=== PATIENT | male | born 1945 | race Caucasian/White ===

== ENCOUNTER → 2018-06-25 07:35 | Outpatient (CLI) | payer OTHER, SELFPAY ==
--- NOTE | 2018-06-25 | DI.MRI.S_ITS ---
PROCEDURE: MR LUMBAR SPINE WO CON INDICATIONS: Anesthesia of skin TECHNIQUE: Noncontrast sagittal T1 spin echo and T2 fast echo, sagittal STIR, axial T1 and T2 fast spin echo through the lumbar spine. In cases with scoliosis, additional coronal T2 fast spin echo may be performed. COMPARISON: None. FINDINGS: Image quality: Excellent. Alignment and Curvature: There is reversal of the normal lumbar lordosis at the L1-L2 level. Bone Marrow: Marrow is of normal overall signal. No acute vertebral body compression fractures. Mild anterior wedge deformity is seen along, with approximately 10% loss of height anteriorly. Spinal Cord: Conus medullaris terminates at the L1 level. Visualized cord demonstrates normal signal and size. Paraspinous Soft Tissues: No paravertebral masses. T12-L1: Normal appearance. L1-L2: Moderate to severe loss of disc height and disc signal are seen anteriorly. Reactive marrow endplate changes are seen, which are hyperintense on T1-weighted and T2-weighted imaging and most consistent with fatty metaplasia (Modic type II changes). Mild disc bulge is seen. No significant neural foraminal narrowing is seen. Mild central canal narrowing is seen. L2-L3: Moderate loss of disc height is seen. Loss of disc signal is seen. Moderate generalized disc bulge is seen. Moderate bilateral neural foraminal narrowing is seen, left worse than right. No significant central canal narrowing is seen. L3-L4: The disc height is well-preserved. Loss of disc signal is seen at this level. Moderate disc bulge is seen, which is eccentric to the left. There is a central disc protrusion, with an associated annular fissure, as on series 2 image 9 and on series 5 image 21. There is at least moderate bilateral neural foraminal narrowing seen, left worse than right. Moderate to severe central canal narrowing is seen. L4-L5: The disc height is well-preserved. Loss of disc signal is seen at this level. Moderate disc bulge is seen, which is eccentric to the right side. An annular fissure is seen posteriorly and on the left, as on series 2 image 13 and on series 5 image 26. There is moderate right-sided and moderate to severe left-sided neural foraminal narrowing seen. There is a degree of compression seen upon the exiting left L4 nerve root. Mild central canal narrowing is seen. L5-S1: The disc height and disc signal are relatively well-preserved. Minimal disc bulge is seen. Mild bilateral neural foraminal narrowing is seen, left worse than right. No significant central canal narrowing is seen. IMPRESSION: At the L3-L4 level, there is a central disc protrusion, with an associated annular fissure. Moderate to severe central canal narrowing is seen at this level. Remote L1 anterior wedge deformity. Moderate to severe left-sided neural foraminal narrowing is seen at L4-L5, with associated left L4 nerve root compression. An annular fissure is also seen at L4-L5. Dictated by: Emilio Han M.D. on 06/25/2018 at 9:19 Approved by: Emilio Han M.D. on 06/25/2018 at 9:24
== END ==
PROVIDERS: Visit Provider Internal Medicine
DX: M51.26 Other intervertebral disc displacement, lumbar region (principal); M48.061 Spinal stenosis, lumbar region without neurogenic claudication; R20.0 Anesthesia of skin
CPT/HCPCS: 72148

== ENCOUNTER → 2018-10-09 12:52 | Outpatient (CLI) | payer OTHER, SELFPAY ==
[2018-10-09 14:59] LABS: Vitamin B12 811 pg/mL (239-931)
[2018-10-12 03:58] LABS: Albumin 4.1 g/dL (3.8-4.8); Alpha 1 Globulin 0.3 g/dL (0.2-0.3); Alpha 2 Globulin 0.6 g/dL (0.5-0.9); Beta 1 Globulin 0.4 g/dL (0.4-0.6); Protein, Total 6.8 g/dL (6.1-8.1)
[2018-10-12 17:20] LABS: Vitamin B6 24.2 ng/mL (2.1-21.7)
== END ==
PROVIDERS: Visit Provider Psychiatry & Neurology Neurology
DX: R20.2 Paresthesia of skin (principal)
CPT/HCPCS: 36415; 82607; 84155; 84165; 84207

== ENCOUNTER 2019-02-03 15:23 | Emergency (ER) | payer OTHER, SELFPAY ==
[2019-02-03] VITALS (8 sets, daily range): BP systolic 114–144; BP diastolic 73–89; PULSE 58–164; RESP 16–20; TEMP 36.4; O2SAT 96–100; BMI 21.7
--- NOTE | 2019-02-03 15:53 | DI.RAD.S_ITS ---
PROCEDURE: XR CHEST 1V INDICATIONS: afib TECHNIQUE: One view of the chest was acquired. COMPARISON: None. FINDINGS: Surgical changes and devices: None. Lungs and pleura: Lungs are clear. There is hyperinflation of the lungs with flattening of the hemidiaphragms suggestive of COPD. No pleural effusions or pneumothorax. Mediastinum: Mediastinal contours appear normal. Heart size is normal. Bones and chest wall: No suspicious bony lesions. Overlying soft tissues appear unremarkable. IMPRESSION: 1. No acute cardiopulmonary disease. 2. Findings suggestive of COPD. Dictated by: Burak Garcia M.D. on 02/03/2019 at 15:14 Approved by: Burak Garcia M.D. on 02/03/2019 at 15:15
[2019-02-03] MEDS: SODIUM CHLORIDE 0.9% 1,000 ML 1000 ML IV (16:02)
[2019-02-03 16:11] LABS: Add Manual Diff / Slide Review NO; Basophils Absolute Auto 100 /uL (0-100); Basophils Percent Auto 0.9 % (0-2); Eosinophils Absolute Auto 100 /uL (0-450); Eosinophils Percent Auto 1.9 % (2-4); Hematocrit 52.4 % (41-53); Hemoglobin 17.9 g/dL (13.5-17.5); Lymphocytes Absolute Auto 2200 /uL (1100-4500); Mean Corpuscular HGB Conc 34.2 % (30-36); Mean Corpuscular Hemoglobin 33.6 PG (26-34); Mean Corpuscular Volume 98.2 fL (80-100); Monocytes Absolute Auto 700 /uL (0-900); Monocytes Percent Auto 9.4 % (3-14); Neutrophils Absolute Auto 4300 /uL (1500-7000); Neutrophils Percent Auto 57.8 % (50-75); Platelet Count 203 X10^3/uL (150-400); Red Blood Cell Count 5.34 X10^6/uL (4.5-5.9); Red Cell Distribution Width 13.2 % (11.6-14.8); White Blood Cell Count 7.4 X10^3/uL (4.5-11.0)
[2019-02-03 16:16] LABS: Alanine Aminotransferase 28 IU/L (<50); Albumin 4.6 g/dL (3.5-5.0); Albumin Globulin Ratio 1.4 (1.0-2.8); Alkaline Phosphatase 81 U/L (38-126); Aspartate Aminotransferase 55 IU/L (17-59); Blood Urea Nitrogen 22 mg/dL (9-20); Calcium 9.7 mg/dL (8.4-10.2); Carbon Dioxide 30 mmol/L (22-32); Chloride 99 mmol/L (98-107); Estimated Glomerular Filt Rate > 60.0 mL/min (>60); Globulin 3.2 g/dL (1.7-4.1); Glucose 141 mg/dL (80-110); HEMOLYSIS 34 (0-50); Sodium 140 mmol/L (137-145); Total Protein 7.8 g/dL (6.3-8.2)
[2019-02-03 16:17] LABS: Creatine Kinase 106 U/L (55-170); Magnesium 2.2 mg/dL (1.6-2.3)
[2019-02-03 16:29] LABS: Troponin I 0.025 ng/mL (0.01-0.034)
[2019-02-03 16:32] LABS: CKMB % Relative Index 2.5 % (1.5-5.0); Creatine Kinase MB 2.65 ng/mL (<2.37)
[2019-02-03 16:50] LABS: Thyroid Stimulating Hormone 3.85 uIU/mL (0.47-4.68)
[2019-02-03] MEDS: MIDAZOLAM 2 MG/2 ML VIAL 4 MG IV (18:03)
--- NOTE | 2019-02-03 18:12 | ED.ARRPALP ---
HPI - Arrhythmia/Palpitations General Chief Complaint: Arrhythmia/Palpitations Stated Complaint: in AFIB Time Seen by Provider: 02/03/19 16:17 Source: patient Mode of arrival: Ambulatory Limitations: no limitations History of Present Illness HPI narrative: Patient comes emergency department complaining of recurrence of his atrial fibrillation around 2200 last night. He states that he used to have atrial fibrillation chronically, but then went through ablation 7 years ago and has not had any AFib since. Patient denies any chest pain or shortness of breath. He states his only symptoms been palpitations. No lightheadedness or syncope. He states that he has not had any symptoms whatsoever prior to 2200 last night. Patient denies any history of DVT. He states that he would like to be cardioverted, because he was cardioverted a few times when he had previously had chronic AFib, and had very good results. Patient states he feels otherwise well now and denies other complaints at this time. Related Data Home Medications Medication Instructions Recorded Confirmed hydrochlorothiazide 25 mg PO QAM 02/03/19 02/04/19 lisinopril 10 mg PO BEDTIME 02/03/19 02/04/19 simvastatin 20 mg PO BEDTIME 02/03/19 02/04/19 multivitamin 1 tab PO DAILY 02/04/19 02/04/19 vit C,S-Yg-hnjrt-lutein-zeaxan 1 cap PO BID 02/04/19 02/04/19 [PreserVision AREDS-2] Allergies Allergy/AdvReac Type Severity Reaction Status Date / Time No Known Drug Allergies Allergy Verified 02/03/19 15:56 Review of Systems Constitutional Constitutional: Denies chills, Denies fatigue, Denies fever(s), Denies frequent falls, Denies lethargy and Denies weakness Eyes Eyes: Denies change in vision, Denies eye discharge, Denies irritation and Denies loss of vision ENT Ears, Nose, Mouth, and Throat: Denies change in voice, Denies dizziness, Denies neck pain, Denies sore throat and Denies throat swelling Cardiovascular Cardiovascular: Denies chest pain, Denies irregular heart rhythm, Denies lightheadedness, Reports palpitations, Denies dyspnea, Denies dyspnea on exertion and Denies orthopnea Respiratory Respiratory: Denies cough, Denies dyspnea, Denies dyspnea on exertion and Denies wheezing Gastrointestinal Gastrointestinal: Denies abdominal pain, Denies change in bowel habits, Denies diarrhea, Denies nausea and Denies vomiting Genitourinary Genitourinary: Denies hematuria, Denies flank pain, Denies urinary incontinence and Denies urinary urgency Musculoskeletal Musculoskeletal: Denies back pain, Denies muscle weakness, Denies neck pain, Denies numbness and Denies tingling Integumentary/Breasts Skin/Breast: Denies pruritus, Denies erythema, Denies rash and Denies wounds Neurologic Neurologic: Denies behavioral changes, Denies confusion, Denies dizziness, Denies frequent falls, Denies loss of vision, Denies numbness, Denies tingling and Denies weakness Psychiatric Psychiatric: Denies anxiety, Denies behavioral changes, Denies confusion, Denies depression, Denies homicidal ideation and Denies suicidal ideation Endocrine Endocrine: Denies fatigue, Denies flushing and Reports palpitations Hematologic/Lymphatic Hematologic/Lymphatic: Denies easy bruising Allergic/Immunologic Allergic/Immunologic: Denies urticaria, Denies throat swelling and Denies wheezing Patient History Medical History Atrial fibrillation (Acute) High cholesterol (Acute) Hypertension (Acute) Surgical History S/P ablation of atrial fibrillation (Acute) Social History Smoking Status: Former smoker Smoking Status: Former smoker alcohol intake frequency: a few times a week Substance Use Type: does not use Exam Initial Vital Signs Initial Vital Signs: Vital Signs Temperature 97.5 F L 02/03/19 15:27 Pulse Rate 164 H 02/03/19 15:27 Respiratory Rate 16 02/03/19 15:27 Blood Pressure 144/89 H 02/03/19 15:27 Pulse Oximetry 100 02/03/19 15:27 Const General: cooperative and well developed Nutritional Appearance: well nourished Orientation: alert, awake, oriented x3 and not confused [facility] Head: normocephalic and atraumatic Ears: external ears normal Nose: external nose normal and No nasal discharge Face and sinus: face symmetric and No dry mucous membranes Mouth: oral mucosae normal and moist mucous membranes Teeth and gingiva: dentition normal Eyes General: appearance normal, both eyes and all related structures Eyelids: eyelids normal Conjunctivae: conjunctivae normal Sclera: sclerae normal Pupils: PERRL EOM: EOM intact bilaterally Neck Neck: normal visual inspection, trachea midline, No lymphadenopathy, No midline deformity and No JVD Lymphatic: No lymphedema Chest Chest: normal inspection of the chest Resp Effort & Inspection: normal respiratory effort, able to speak in complete sentences, no respiratory distress and no use of accessory muscles Auscultation: clear to auscultation bilaterally, no rales, no rhonchi and no wheezes Cardio Rate: regular rate Rhythm: abnormal rhythm irregularly irregular Heart Sounds: no click, no gallops, no murmurs and no rubs Pulses: normal peripheral pulses GI Inspection: non-distended Palpation: soft, no hepatosplenomegaly, No guarding, No pulsatile mass and No tender Back/Spine/Pelvis Back: No CVA tenderness Cervical Spine: cervical ROM normal and No pain with cervical ROM Thoracic/Lumbar Spine: thoracic and lumbar spine normal to inspection Skin General: no rashes or lesions noted, No jaundice and No petechiae Neuro General: alert, oriented x3, gait normal and no focal motor deficits Speech: speech normal Extrem General: full ROM, no clubbing, cyanosis or edema, no pedal edema and no calf tenderness Psych Appearance: well kempt Mental Status: mental status grossly normal Attitude: cooperative Thought Content: normal and suicidality Judgment: judgment good Procedures Cardioversion Consent Signed: Yes Indication: Acute onset atrial fibrillation Cardiac rhythm prior to cardioversion: Atrial fibrillation with rate control Stability: Stable Number of attempts (shocks): 2 Joules used: 50 and 100 Cardiac rhythm post-cardioversion: Normal sinus rhythm Additional Comments: Initial shock at 50 joules was given, without change in rhythm. Dose was increased to 100 joules, with successful conversion to normal sinus rhythm. Procedural Sedation Patient Age: Patient is 5yrs or older Consent signed: Yes Indication: cardioversion ASA Class: II (AFib and hypertension only) Preparation: quality assurance monitor final applied, pulse oximeter, capnometry used, supplemental O2 applied (Respiratory therapist present), suction/airway equipment at bedside and IV secured Midazolam: IV (4 mg) ED Sedation Level: Moderate (Concious) Patient Tolerated Procedure: Well and No complications Complications: none Course Course Course Narrative: The patient was worked up with laboratory studies, which were unremarkable. EKG did show initially atrial fibrillation with mild rapid ventricular response. However, by the time that I evaluated him, his rate had normalized. Patient was asymptomatic except for the sensation of palpitations. I verified with the patient that he was absolutely certain that his AFib had started at 10:00 p.m. last night, and the patient stated that he knows what AFib feels like from having it for so long before his ablation, and is certain that he was not in it before then. I did discuss with him that if there is any chance he may have been in AFib or for more than 48 hours, that we would not be able to cardiovert him, due to the risk of clot formation and risk of dislodgement during the cardioversion. The patient stated he was certain of the time of onset. As such, I discussed with him that since he had been in AFib for less than 48 hours, we could attempt to cardiovert him if this is what he desired. Alternatively, he could be discharged on anticoagulation to see his analytical research chemist in follow-up. The patient stated he preferred cardioversion, as he had had this done before and it was quite successful. I did go through consent form with the patient for procedural sedation and cardioversion, and patient was agreeable. Please see procedure section for the cardioversion note. Cardioversion was successful in the emergency department, and patient turned to a normal sinus rhythm. The patient was observed until anesthesia had completely worn off, and was without complaints. He was able to ambulate in the emergency department without difficulty. He remained in normal sinus rhythm. I discussed with him that he will need to follow up with his analytical research chemist to come up with a longer-term plan, particularly if his AFib becomes recurrent again. Patient expresses understanding. Orders Ordered: Discontinued Medications Sodium Chloride (Normal Saline 0.9%) 1,000 mls @ 1,000 mls/hr IV BOLUS ONE Stop: 02/03/19 16:56 Last Infusion: 02/03/19 17:12 Dose: 0 mls/hr Documented by: Admin: 02/03/19 16:02 Dose: 1,000 mls/hr Documented by: SALVADOR Midazolam HCl (Versed) 4 mg IV NOW ONE Stop: 02/03/19 17:29 Last Admin: 02/03/19 18:03 Dose: 4 mg Documented by: SCANAPO Vital Signs Vital signs: Vital Signs - 8 hr 02/03/19 15:27 02/03/19 16:32 Temperature 97.5 F L Pulse Rate 164 H 91 H Respiratory Rate 16 16 Blood Pressure 144/89 H Blood Pressure [Left Arm] 118/75 Pulse Oximetry 100 99 MDM - Arrhythmia/Palpitations Medical Records Attestation: I reviewed the patient's medical records. Lab Data Attestation: I reviewed the patient's lab results. Result diagrams: 02/03/19 15:40 02/03/19 15:40 Labs: Lab Results 02/03/19 02/03/19 02/03/19 Range/Units 15:40 15:40 15:40 WBC 7.4 (4.5-11.0) X10^3/uL RBC 5.34 (4.5-5.9) X10^6/uL Hgb 17.9 H (13.5-17.5) g/dL Hct 52.4 (41-53) % MCV 98.2 (80-100) fL MCH 33.6 (26-34) PG MCHC 34.2 (30-36) % RDW 13.2 (11.6-14.8) % Plt Count 203 (150-400) X10^3/uL Neut % (Auto) 57.8 (50-75) % Lymph % (Auto) 30.0 (25-40) % [place] % (Auto) 9.4 (3-14) % Eos % (Auto) 1.9 L (2-4) % Baso % (Auto) 0.9 (0-2) % Neut # (Auto) 4300 (6687-5756) /uL Lymph # (Auto) 2200 (2984-1602) /uL [place] # (Auto) 700 (0-900) /uL Eos # (Auto) 100 (0-450) /uL Baso # (Auto) 100 (0-100) /uL Sodium 140 (137-145) mmol/L Potassium 4.0 (3.4-5.1) mmol/L Chloride 99 (98-107) mmol/L Carbon Dioxide 30 (22-32) mmol/L BUN 22 H (9-20) mg/dL Creatinine 1.00 (0.66-1.25) mg/dL Estimated GFR > 60.0 (>60) mL/min BUN/Creatinine Ratio 22.0 (6-22) Glucose 141 H (80-110) mg/dL Calcium 9.7 (8.4-10.2) mg/dL Magnesium 2.2 (1.6-2.3) mg/dL Total Bilirubin 1.0 (0.2-1.3) mg/dL AST 55 (17-59) IU/L ALT 28 (<50) IU/L Alkaline Phosphatase 81 (38-126) U/L Total Creatine Kinase 106 (55-170) U/L CK-MB (CK-2) 2.65 H (<2.37) ng/mL CK-MB (CK-2) Rel Index 2.5 (1.5-5.0) % Troponin I 0.025 (0.01-0.034) ng/mL Total Protein 7.8 (6.3-8.2) g/dL Albumin 4.6 (3.5-5.0) g/dL Globulin 3.2 (1.7-4.1) g/dL Albumin/Globulin Ratio 1.4 (1.0-2.8) TSH (0.47-4.68) uIU/mL 02/03/19 Range/Units 15:40 WBC (4.5-11.0) X10^3/uL RBC (4.5-5.9) X10^6/uL Hgb (13.5-17.5) g/dL Hct (41-53) % MCV (80-100) fL MCH (26-34) PG MCHC (30-36) % RDW (11.6-14.8) % Plt Count (150-400) X10^3/uL Neut % (Auto) (50-75) % Lymph % (Auto) (25-40) % [place] % (Auto) (3-14) % Eos % (Auto) (2-4) % Baso % (Auto) (0-2) % Neut # (Auto) (1309-2256) /uL Lymph # (Auto) (3086-7833) /uL [place] # (Auto) (0-900) /uL Eos # (Auto) (0-450) /uL Baso # (Auto) (0-100) /uL Sodium (137-145) mmol/L Potassium (3.4-5.1) mmol/L Chloride (98-107) mmol/L Carbon Dioxide (22-32) mmol/L BUN (9-20) mg/dL Creatinine (0.66-1.25) mg/dL Estimated GFR (>60) mL/min BUN/Creatinine Ratio (6-22) Glucose (80-110) mg/dL Calcium (8.4-10.2) mg/dL Magnesium (1.6-2.3) mg/dL Total Bilirubin (0.2-1.3) mg/dL AST (17-59) IU/L ALT (<50) IU/L Alkaline Phosphatase (38-126) U/L Total Creatine Kinase (55-170) U/L CK-MB (CK-2) (<2.37) ng/mL CK-MB (CK-2) Rel Index (1.5-5.0) % Troponin I (0.01-0.034) ng/mL Total Protein (6.3-8.2) g/dL Albumin (3.5-5.0) g/dL Globulin (1.7-4.1) g/dL Albumin/Globulin Ratio (1.0-2.8) TSH 3.85 (0.47-4.68) uIU/mL Imaging Data Chest x-ray: Radiologist's impression: PROCEDURE: XR CHEST 1V INDICATIONS: afib TECHNIQUE: One view of the chest was acquired. COMPARISON: None. FINDINGS: Surgical changes and devices: None. Lungs and pleura: Lungs are clear. There is hyperinflation of the lungs with flattening of the hemidiaphragms suggestive of COPD. No pleural effusions or pneumothorax. Mediastinum: Mediastinal contours appear normal. Heart size is normal. Bones and chest wall: No suspicious bony lesions. Overlying soft tissues appear unremarkable. IMPRESSION: 1. No acute cardiopulmonary disease. 2. Findings suggestive of COPD. Dictated by: Burak Garcia M.D. on 02/03/2019 at 15:14 Approved by: Burak Garcia M.D. on 02/03/2019 at 15:15 ECG Data Attestation: I personally reviewed and interpreted this ECG as follows: (See below) Interpretation: Twelve lead EKG performed February 03, 2019 at 3:40 p.m., as follows: Irregular ventricular rhythm with a rate of 127 beats per minute P waves and AZ intervals undetectable QRS duration of 97 milliseconds QTC interval [address] T wave changes Interpretation: Atrial fibrillation with rapid ventricular response; low QRS voltage in extremity leads; possible anterior MD, probably old; inferior myocardial infarction, probably old; no signs of acute ischemia; abnormal EKG as interpreted by ED MD. Post cardioversion EKG, performed February 03, 2019 at 6:18 p.m.: Regular ventricular rhythm with a rate of 61 beats per minute [place] interval 232 millisecond QRS duration 118 milliseconds QTC interval [address] T wave changes Interpretation: Sinus rhythm with first-degree AV block; low QRS voltage in extremity leads; left anterior fascicular block; inferior MD, probably old; no signs of acute ischemia; abnormal EKG as interpreted by ED MD. Discharge Plan Departure Patient Disposition: Home Clinical Impression: Atrial fibrillation with rapid ventricular response, Encounter for cardioversion procedure Discharge Date/Time: 02/03/19 19:24 Instructions: DI for Atrial Fibrillation, DI for Moderate Sedation Activity Restrictions/Additional Instructions: Your shocked twice to get your heart back into normal sinus rhythm. You have been sedated today with a medication called Versed. This is a short-acting medication; however, you should not drive in the next 12 hours and should avoid making any important decisions for the next 24 hours. Please call your analytical research chemist's office tomorrow to make an appointment to follow-up. Prescriptions: No Action simvastatin 20 mg tablet 20 mg PO BEDTIME RF: 0 lisinopril 10 mg tablet 10 mg PO BEDTIME RF: 0 hydrochlorothiazide 25 mg tablet 25 mg PO QAM RF: 0 multivitamin Tablet 1 tab PO DAILY RF: 0 PreserVision AREDS-2 [id number] Capsule 1 cap PO BID RF: 0 Referrals: Varghese Iyer MD [Primary Care Provider] -
--- NOTE | 2019-02-03 18:49 | PC.NURSE ---
Pt assisted to BR to dress prior to DC. pt unsteady upon standing with RN at side. assisted to sit. VS taken. 119/[address] Crenshaw made aware. No new orders. Advised by Dr Crenshaw to have pt remain sitting for 15-20min and reassess prior to DC.
== END 2019-02-03 19:24 | disposition home or self-care (01) ==
PROVIDERS: Emergency Provider Emergency Medicine; PCP Internal Medicine
DX: I48.20 Chronic atrial fibrillation, unspecified (principal)
CPT/HCPCS: 36415; 71045; 80053; 82550; 82553; 83735; 84443; 84484; 85025; 92960; 93005; 93010; 94770; 96360; 99152; 99283; 99285; J2250

== ENCOUNTER 2019-02-04 09:36 | Emergency (ER) | payer OTHER, SELFPAY ==
[2019-02-04] VITALS (15 sets, daily range): BP systolic 123–153; BP diastolic 7–96; PULSE 56–60; RESP 12–21; TEMP 36.3; O2SAT 100; BMI 21.7; BMI 23.2
--- NOTE | 2019-02-04 10:02 | DI.RAD.S_ITS ---
PROCEDURE: XR CHEST 1V INDICATIONS: chest pain TECHNIQUE: One view of the chest was acquired. COMPARISON: [facility], CR, XR CHEST 1V, 02/03/2019, 16:01. FINDINGS: Surgical changes and devices: None. Lungs and pleura: Lungs are clear. No pleural effusions or pneumothorax. Mediastinum: Mediastinal contours appear normal. Heart size is normal. Bones and chest wall: No suspicious bony lesions. Overlying soft tissues appear unremarkable. IMPRESSION: Normal for age, source of current chest pain symptoms is not seen. Dictated by: Nick Jose M.D. on 02/04/2019 at 10:16 Approved by: Nick Jose M.D. on 02/04/2019 at 10:16
--- NOTE | 2019-02-04 10:11 | ED.NEUROSD ---
HPI - Neuro Symptoms/Deficit General Chief Complaint: Neuro Symptoms/Deficit Stated Complaint: june of had a stroke this morning Time Seen by Provider: 02/04/19 09:56 Source: patient and family Mode of arrival: Ambulatory History of Present Illness HPI Narrative: Patient is a 73-year-old male with history of atrial fibrillation diaz and cardioverted yesterday in the emergency department. She says that he actually has not had an episode of atrial fibrillation in 7 years after his ablation. He is not on aspirin or other anticoagulation medication. He says this morning after he woke up he noticed his left arm his fingers were flexed. Pike like his arm was weak and that he had left facial droop. Symptoms lasted for under 10 minutes and have completely resolved. Related Data Home Medications Medication Instructions Recorded Confirmed hydrochlorothiazide 25 mg PO QAM 02/03/19 02/04/19 lisinopril 10 mg PO BEDTIME 02/03/19 02/04/19 simvastatin 20 mg PO BEDTIME 02/03/19 02/04/19 multivitamin 1 tab PO DAILY 02/04/19 02/04/19 vit C,C-Kw-aiegj-lutein-zeaxan 1 cap PO BID 02/04/19 02/04/19 [PreserVision AREDS-2] Allergies Allergy/AdvReac Type Severity Reaction Status Date / Time No Known Drug Allergies Allergy Verified 02/03/19 15:56 Review of Systems Review of Systems ROS Unobtainable: All systems reviewed & are unremarkable except as noted in HPI and below Constitutional Constitutional: Denies chills, Denies fever(s), Denies lethargy and Reports weakness (Left arm) Eyes Eyes: Denies change in vision, Denies eye discharge, Denies irritation and Denies loss of vision ENT Ears, Nose, Mouth, and Throat: Denies change in voice, Denies neck pain and Denies sore throat Cardiovascular Cardiovascular: Reports as per HPI, Denies chest pain, Denies irregular heart rhythm, Denies lightheadedness, Denies palpitations, Denies dyspnea, Denies dyspnea on exertion and Denies orthopnea Respiratory Respiratory: Denies cough, Denies dyspnea, Denies dyspnea on exertion and Denies wheezing Gastrointestinal Gastrointestinal: Denies abdominal pain, Denies change in bowel habits, Denies diarrhea, Denies nausea and Denies vomiting Genitourinary Genitourinary: Denies hematuria, Denies flank pain, Denies urinary incontinence and Denies urinary urgency Musculoskeletal Musculoskeletal: Denies neck pain Integumentary/Breasts Skin/Breast: Denies pruritus, Denies erythema, Denies rash and Denies wounds Neurologic Neurologic: Reports as per HPI, Reports focal weakness, Denies loss of vision and Reports weakness (Left arm) Endocrine Endocrine: Denies palpitations Allergic/Immunologic Allergic/Immunologic: Denies wheezing Patient History Medical History Atrial fibrillation (Acute) High cholesterol (Acute) Hypertension (Acute) Surgical History S/P ablation of atrial fibrillation (Acute) Social History Smoking Status: Former smoker Smoking Status: Former smoker alcohol intake frequency: a few times a week Substance Use Type: does not use Exam Initial Vital Signs Initial Vital Signs: Vital Signs Temperature 97.3 F L 02/04/19 09:37 Pulse Rate 58 L 02/04/19 09:37 Respiratory Rate 12 02/04/19 09:37 Blood Pressure 140/83 02/04/19 09:37 Pulse Oximetry 100 02/04/19 09:37 GENERAL: Alert male and in no acute distress. HEENT: Head atraumatic,EOMI, pupils reactive, face symmetric, moist mucous membranes CARDIOVASCULAR: Regular rate and rhythm without murmurs, rubs or gallops. RESPIRATORY: Breath sounds equal bilaterally, no wheezes rales or rhonchi. ABDOMEN: Soft, nontender. Normoactive bowel sounds all 4 quadrants. No guarding or rebound. EXTREMITIES: Normal range of motion, no clubbing or edema. Neurovascularly intact NEUROLOGICAL: Alert and oriented x4.Normal gait and speech. Cranial nerves II through XII grossly intact. Good gdhwzu-yz-hiub, good qlci-bq-wxdd, strength equal bilaterally, no dysarthria or aphasia, sensation in tact to soft touch bilaterally, no visual changes, no facial droop SKIN: Warm, dry, no laceration, no petechiae, no rashes or lesions. Scores NIH Stroke Scale Level of Conciousness: Alert, keenly responsive Ask month/age: Answers both questions correctly. Open/close eyes, close hand: Performs both tasks correctly Best gaze horizontal: Normal Visual abernathy: No visual loss Facial palsy: Minor paralysis, flattened nasolabial fold, asymmetry on smiling Left arm drift: No drift for full 10 sec Right arm drift: No drift for full 10 sec Left leg drift: No drift for full 10 sec Right leg drift: No drift for full 10 sec Limb ataxia: Present in one limb Sensory on face/arms/legs: Normal, no sensory loss Best language: Mild to moderate, slurs some words Dysarthria: Normal Extinction or inattention: No abnormality Total NIH Stroke scale score: 3 Course Orders Ordered: ED Orders 02/04/19 09:46 EKG-12 Lead Routine 02/04/19 09:59 Complete Blood Count AUTO DIFF Stat Comprehensive Metabolic Panel Stat Lipase Stat Partial Thromboplastin Time Stat Prothrombin Time INR Stat Troponin & CK Cardiac Panel Stat 02/04/19 10:02 XR chest 1V Stat 02/04/19 10:06 Urine Drug Screen, Rapid Stat 02/04/19 10:17 CT head/brain wo con Stat 02/04/19 10:25 Type and Screen Stat 02/04/19 11:20 CT angio head and neck Stat Discontinued Medications Alteplase, Recombinant (Activase) 72 mg IV NOW ONE Stop: 02/04/19 11:16 Last Admin: 02/04/19 11:02 Dose: 72 mg Documented by: SALVADOR Alteplase, Recombinant (Activase) 64.8 mg 0.81 mg/kg (64.8 mg) IV NOW ONE Stop: 02/04/19 11:11 Last Admin: 02/04/19 11:13 Dose: Not Given Documented by: SALVADOR Aspirin (Aspirin Chew) 324 mg PO NOW ONE Stop: 02/04/19 10:07 Last Admin: 02/04/19 10:28 Dose: Not Given Documented by: SALVADOR Sodium Chloride (Normal Saline 0.9%) 1,000 mls @ 150 mls/hr IV BOLUS ONE Stop: 02/04/19 17:08 Last Infusion: 02/04/19 13:16 Dose: 0 mls/hr Documented by: Admin: 02/04/19 11:00 Dose: 150 mls/hr Documented by: SALVADOR Sodium Chloride (Normal Saline 0.9%) 1,000 mls @ 150 mls/hr IV CONT ZURDO Last Admin: 02/04/19 11:15 Dose: Not Given Documented by: SALVADOR Reevaluation(s) Reevaluation #1: Patient started having symptoms again. He is re-evaluated he is able to hold his arm poor swffsb-ee-wibb left facial droop noted code stroke called. The patient immediately went to CT Time: 10:17 Consultations Consultation #1: Dr. Staton, neurology at [facility] updated patient's symptoms test results requests video confrence Time: 10:35 Vital Signs Vital signs: Vital Signs - 8 hr 02/04/19 10:00 02/04/19 10:15 02/04/19 10:45 Temperature Pulse Rate 57 L 58 L 60 Respiratory Rate 19 16 17 Blood Pressure Blood Pressure [Right Arm] 153/87 H 145/88 H 134/7 L Pulse Oximetry 100 100 100 02/04/19 11:00 02/04/19 11:04 02/04/19 11:15 Temperature 97.3 F L Pulse Rate 58 L 58 L 57 L Respiratory Rate 16 16 14 Blood Pressure 140/83 Blood Pressure [Right Arm] 143/96 H 132/86 Pulse Oximetry 100 100 100 02/04/19 11:30 02/04/19 11:45 02/04/19 12:00 Temperature Pulse Rate 58 L 58 L 60 Respiratory Rate 16 19 19 Blood Pressure Blood Pressure [Right Arm] 123/79 133/79 131/77 Pulse Oximetry 100 100 100 02/04/19 12:30 02/04/19 12:45 02/04/19 13:00 Temperature Pulse Rate 59 L 58 L 57 L Respiratory Rate 15 15 18 Blood Pressure Blood Pressure [Right Arm] 126/81 126/82 130/74 Pulse Oximetry 100 100 100 02/04/19 13:15 Temperature Pulse Rate 58 L Respiratory Rate 16 Blood Pressure Blood Pressure [Right Arm] 130/74 Pulse Oximetry 100 MDM - Neuro Symptoms/Deficit Lab Data Attestation: I reviewed the patient's lab results. Result diagrams: 02/04/19 09:59 02/04/19 09:59 Labs: Lab Results 02/04/19 02/04/19 02/04/19 Range/Units 09:59 09:59 09:59 WBC 5.9 (4.5-11.0) X10^3/uL RBC 4.76 (4.5-5.9) X10^6/uL Hgb 15.9 (13.5-17.5) g/dL Hct 46.0 (41-53) % MCV 96.7 (80-100) fL MCH 33.5 (26-34) PG MCHC 34.7 (30-36) % RDW 13.3 (11.6-14.8) % Plt Count 179 (150-400) X10^3/uL Neut % (Auto) 47.6 L (50-75) % Lymph % (Auto) 39.3 (25-40) % [place] % (Auto) 9.8 (3-14) % Eos % (Auto) 2.2 (2-4) % Baso % (Auto) 1.1 (0-2) % Neut # (Auto) 2800 (9393-8198) /uL Lymph # (Auto) 2300 (1222-8187) /uL [place] # (Auto) 600 (0-900) /uL Eos # (Auto) 100 (0-450) /uL Baso # (Auto) 100 (0-100) /uL PT 12.6 (10.1-12.7) SECONDS INR 1.1 (0.9-1.3) APTT 28 (26.4-36.2) SECONDS Sodium 142 (137-145) mmol/L Potassium 3.6 (3.4-5.1) mmol/L Chloride 106 (98-107) mmol/L Carbon Dioxide 28 (22-32) mmol/L BUN 20 (9-20) mg/dL Creatinine 0.90 (0.66-1.25) mg/dL Estimated GFR > 60.0 (>60) mL/min BUN/Creatinine Ratio 22.2 H (6-22) Glucose 79 L (80-110) mg/dL Calcium 9.4 (8.4-10.2) mg/dL Total Bilirubin 1.1 (0.2-1.3) mg/dL AST 31 (17-59) IU/L ALT 24 (<50) IU/L Alkaline Phosphatase 65 (38-126) U/L Total Creatine Kinase 77 (55-170) U/L CK-MB (CK-2) TNP CK-MB (CK-2) Rel Index TNP Troponin I 0.015 (0.01-0.034) ng/mL Total Protein 7.1 (6.3-8.2) g/dL Albumin 4.2 (3.5-5.0) g/dL Globulin 2.9 (1.7-4.1) g/dL Albumin/Globulin Ratio 1.4 (1.0-2.8) Lipase 188 (23-300) U/L Blood Type Antibody Screen 02/04/19 Range/Units 10:25 WBC (4.5-11.0) X10^3/uL RBC (4.5-5.9) X10^6/uL Hgb (13.5-17.5) g/dL Hct (41-53) % MCV (80-100) fL MCH (26-34) PG MCHC (30-36) % RDW (11.6-14.8) % Plt Count (150-400) X10^3/uL Neut % (Auto) (50-75) % Lymph % (Auto) (25-40) % [place] % (Auto) (3-14) % Eos % (Auto) (2-4) % Baso % (Auto) (0-2) % Neut # (Auto) (6826-5857) /uL Lymph # (Auto) (0746-4191) /uL [place]away # (Auto) (0-900) /uL Eos # (Auto) (0-450) /uL Baso # (Auto) (0-100) /uL PT (10.1-12.7) SECONDS INR (0.9-1.3) APTT (26.4-36.2) SECONDS Sodium (137-145) mmol/L Potassium (3.4-5.1) mmol/L Chloride (98-107) mmol/L Carbon Dioxide (22-32) mmol/L BUN (9-20) mg/dL Creatinine (0.66-1.25) mg/dL Estimated GFR (>60) mL/min BUN/Creatinine Ratio (6-22) Glucose (80-110) mg/dL Calcium (8.4-10.2) mg/dL Total Bilirubin (0.2-1.3) mg/dL AST (17-59) IU/L ALT (<50) IU/L Alkaline Phosphatase (38-126) U/L Total Creatine Kinase (55-170) U/L CK-MB (CK-2) CK-MB (CK-2) Rel Index Troponin I (0.01-0.034) ng/mL Total Protein (6.3-8.2) g/dL Albumin (3.5-5.0) g/dL Globulin (1.7-4.1) g/dL Albumin/Globulin Ratio (1.0-2.8) Lipase (23-300) U/L Blood Type O Positive Antibody Screen Negative Point of Care Testing Glucose POC [address] scan - head: Radiologist's impression: PROCEDURE: CT HEAD/BRAIN WO CON INDICATIONS: left arm weakness resolved TECHNIQUE: Noncontrast 4.5 mm thick angled axial sections acquired from the foramen magnum to the vertex, with coronal and sagittal reformats. For radiation dose reduction, the following was used: automated exposure control, adjustment of mA and/or kV according to patient size. COMPARISON: None. FINDINGS: Image quality: Excellent. CSF spaces: Basal cisterns are patent. No extra-axial fluid collections. The ventricles are symmetric in size and shape. Brain: No intracranial hemorrhage, mass, or mass effect. The fuentes-white matter junction appears preserved. There are a few indistinct periventricular and subcortical hypodensities compatible with mild chronic white matter small vessel ischemic changes. Skull and face: Calvarium and visualized facial bones appear intact, without suspicious lesions. Sinuses: Visualized sinuses and mastoids are clear. IMPRESSION: 1. No acute intracranial abnormality. Specifically, no contraindications to TPA identified. 2. Mild chronic white matter small vessel ischemic changes. Findings discussed with Dr. Beltran on 02/04/19 at 10:28 AM pacific time. Dictated by: Burak Garcia M.D. on 02/04/2019 at 9:26 Head and neck angio: Radiologist's impression: PROCEDURE: CT ANGIO HEAD AND NECK INDICATIONS: cva TECHNIQUE: Pre-contrast 4.5 mm thick sections acquired from the foramen magnum to the vertex. After the administration of intravenous contrast, 1 mm thick sections acquired from the aortic arch through the [place] of [place]. Post-contrast 4.5 mm thick sections then re-acquired from the foramen magnum to the vertex. 3-dimensional guedgpv-lcslwmril-etjwwulnzo (MIP) and/or volume rendering reformats were acquired of the central intracranial vasculature and neck separately. COMPARISON: [facility], CT, CT HEAD/BRAIN WO CON, 02/04/2019, 10:14. FINDINGS: Image quality: Excellent. BRAIN: CSF spaces: Ventricles are normal in size and shape. Basal cisterns are patent. No extra-axial fluid collections. Brain: No midline shift. No intracranial bleeds or masses. Fuentes-white matter interface appears intact. Skull and face: Calvarium and facial bones appear intact, without suspicious lesions. Orbits appear normal. Sinuses: Sinuses and mastoids are clear. HEAD CT ANGIOGRAPHY: Anterior circulation: Intracranial internal carotid arteries (ICA): normal. Anterior cerebral arteries (MONA): normal. Middle cerebral arteries (MCA): normal. No aneurysms are seen. Posterior circulation: Visualized portions of the vertebral arteries: normal. Basilar artery: normal. Posterior cerebral arteries (PERIOPERATIVE ASSISTANT): normal. No aneurysms are seen. NECK CT ANGIOGRAPHY: Carotid system: Minimal left common carotid atherosclerotic plaque. The great vessels demonstrate a conventional anatomy as they arise from the aortic arch. Origins of the common carotid arteries appear patent. Common carotid arteries (CCA): normal. Internal carotid arteries (ICA): normal. Posterior circulation: The origins of the vertebral arteries both appear patent. Dominant appearance of the left vertebral artery. There is diffuse atresia/narrowing of the right vertebral artery Basilar artery: normal. Soft tissues: Visualized neck soft tissues demonstrate no suspicious abnormalities. Bones: Straightening of the normal cervical lordosis. Multilevel degenerative endplate sclerosis and spurring. Diffuse facet arthropathy. No fracture. IMPRESSION: No hemodynamically significant stenosis identified. Minimal punctate left common carotid atherosclerotic plaque is. Dominant appearance of the left vertebral artery and diffuse narrowing/atresia of the right vertebral artery. Any quantitative measurements of stenosis were performed using NASCET criteria. Dictated by: Albaro Guerra M.D. on 02/04/2019 at 12:19 ECG Data Attestation: I personally reviewed and interpreted this ECG as follows: Prior ECG tracings: available for review Interpretation: Normal sinus rhythm rate 54 p.r[address] interval [address] elevation or depression or T-wave inversion MDM Narrative Medical decision making narrative: Patient initial NIH stroke scale is 0. The patient started having symptoms again at around 10:15. I re-evaluated him myself he did clearly have left facial droop left arm weakness with left ataxia. Repeat NIH stroke scale 3 Neurology was consulted and he was immediately sent to head CT and code stroke was called. The patient has no contraindications to tPA. To tele stroke conference to in Dr. Staton agrees with tPA administration. Patient's and consented to tPA discussed both risk and benefit with them myself and as well as Dr. Staton. The patient started showing improvement after tPA. Per request of Neurology they also wanted a CT angio. Working on transfer to [facility] Critical Care Time Critical Care Time Critical Care Time: Yes Total Critical Care Time: 45 Attestation: The high probability of a clinically significant, sudden or life threatening deterioration of the [cardiovascular] system(s) required my full and direct attention, intervention and personal management. The aggregate critical care time was [45] minutes. This time is in addition to time spent performing reported procedures but includes the following: [x] Data Review and interpretation [x] Patient assessment and monitoring of vital signs [x] Documentation [x] Medication orders and management Discharge Plan Departure Patient Disposition: [facility] Clinical Impression: CVA (cerebral vascular accident) Qualifiers: CVA mechanism: other Qualified Code(s): I63.89 - Other cerebral infarction Discharge Date/Time: 02/04/19 13:24 Prescriptions: No Action simvastatin 20 mg tablet 20 mg PO BEDTIME RF: 0 lisinopril 10 mg tablet 10 mg PO BEDTIME RF: 0 hydrochlorothiazide 25 mg tablet 25 mg PO QAM RF: 0 multivitamin Tablet 1 tab PO DAILY RF: 0 PreserVision AREDS-2 [id number] Capsule 1 cap PO BID RF: 0 Referrals: Varghese Iyer MD [Primary Care Provider] -
[2019-02-04 10:13] LABS: INR 1.1 (0.9-1.3); Prothrombin Time 12.6 SECONDS (10.1-12.7)
[2019-02-04 10:14] LABS: Add Manual Diff / Slide Review NO; Basophils Absolute Auto 100 /uL (0-100); Basophils Percent Auto 1.1 % (0-2); Eosinophils Absolute Auto 100 /uL (0-450); Eosinophils Percent Auto 2.2 % (2-4); Hemoglobin 15.9 g/dL (13.5-17.5); Lymphocytes Absolute Auto 2300 /uL (1100-4500); Lymphocytes Percent Auto 39.3 % (25-40); Mean Corpuscular HGB Conc 34.7 % (30-36); Mean Corpuscular Hemoglobin 33.5 PG (26-34); Mean Corpuscular Volume 96.7 fL (80-100); Monocytes Absolute Auto 600 /uL (0-900); Monocytes Percent Auto 9.8 % (3-14); Neutrophils Absolute Auto 2800 /uL (1500-7000); Neutrophils Percent Auto 47.6 % (50-75); Platelet Count 179 X10^3/uL (150-400); Red Blood Cell Count 4.76 X10^6/uL (4.5-5.9); Red Cell Distribution Width 13.3 % (11.6-14.8); White Blood Cell Count 5.9 X10^3/uL (4.5-11.0)
[2019-02-04 10:15] LABS: PTT Partial Thromboplastin Tim 28 SECONDS (26.4-36.2)
--- NOTE | 2019-02-04 10:17 | DI.CT.S_ITS ---
PROCEDURE: CT HEAD/BRAIN WO CON INDICATIONS: left arm weakness resolved TECHNIQUE: Noncontrast 4.5 mm thick angled axial sections acquired from the foramen magnum to the vertex, with coronal and sagittal reformats. For radiation dose reduction, the following was used: automated exposure control, adjustment of mA and/or kV according to patient size. COMPARISON: None. FINDINGS: Image quality: Excellent. CSF spaces: Basal cisterns are patent. No extra-axial fluid collections. The ventricles are symmetric in size and shape. Brain: No intracranial hemorrhage, mass, or mass effect. The [place]-white matter junction appears preserved. There are a few indistinct periventricular and subcortical hypodensities compatible with mild chronic white matter small vessel ischemic changes. Skull and face: Calvarium and visualized facial bones appear intact, without suspicious lesions. Sinuses: Visualized sinuses and mastoids are clear. IMPRESSION: 1. No acute intracranial abnormality. Specifically, no contraindications to TPA identified. 2. Mild chronic white matter small vessel ischemic changes. Findings discussed with Dr. Beltran on 02/04/19 at 10:28 AM pacific time. Dictated by: Burak Garcia M.D. on 02/04/2019 at 9:26 Approved by: Burak Garcia M.D. on 02/04/2019 at 9:29
[2019-02-04 10:19] LABS: Alanine Aminotransferase 24 IU/L (<50); Albumin 4.2 g/dL (3.5-5.0); Albumin Globulin Ratio 1.4 (1.0-2.8); Alkaline Phosphatase 65 U/L (38-126); Aspartate Aminotransferase 31 IU/L (17-59); BUN Creatinine Ratio 22.2 (6-22); Bilirubin Total 1.1 mg/dL (0.2-1.3); Blood Urea Nitrogen 20 mg/dL (9-20); Calcium 9.4 mg/dL (8.4-10.2); Carbon Dioxide 28 mmol/L (22-32); Chloride 106 mmol/L (98-107); Creatine Kinase 77 U/L (55-170); Estimated Glomerular Filt Rate > 60.0 mL/min (>60); Globulin 2.9 g/dL (1.7-4.1); Glucose 79 mg/dL (80-110); HEMOLYSIS < 15 (0-50); Lipase 188 U/L (23-300); Potassium 3.6 mmol/L (3.4-5.1); Sodium 142 mmol/L (137-145); Total Protein 7.1 g/dL (6.3-8.2)
[2019-02-04 10:30] LABS: Troponin I 0.015 ng/mL (0.01-0.034)
[2019-02-04] MEDS: SODIUM CHLORIDE 0.9% 1,000 ML 150 ML IV (11:00)
[2019-02-04] MEDS: ALTEPLASE 100 MG VIAL 72 MG IV (11:02)
--- NOTE | 2019-02-04 11:20 | DI.CT.S_ITS ---
PROCEDURE: CT ANGIO HEAD AND NECK INDICATIONS: cva TECHNIQUE: Pre-contrast 4.5 mm thick sections acquired from the foramen magnum to the vertex. After the administration of intravenous contrast, 1 mm thick sections acquired from the aortic arch through the [place] of Cronin. Post-contrast 4.5 mm thick sections then re-acquired from the foramen magnum to the vertex. 3-dimensional obnxmgr-ktpjuzcqi-wbfbpnfyws (MIP) and/or volume rendering reformats were acquired of the central intracranial vasculature and neck separately. COMPARISON: [facility], CT, CT HEAD/BRAIN WO CON, 02/04/2019, 10:14. FINDINGS: Image quality: Excellent. BRAIN: CSF spaces: Ventricles are normal in size and shape. Basal cisterns are patent. No extra-axial fluid collections. Brain: No midline shift. No intracranial bleeds or masses. Fuentes-white matter interface appears intact. Skull and face: Calvarium and facial bones appear intact, without suspicious lesions. Orbits appear normal. Sinuses: Sinuses and mastoids are clear. HEAD CT ANGIOGRAPHY: Anterior circulation: Intracranial internal carotid arteries (ICA): normal. Anterior cerebral arteries (MONA): normal. Middle cerebral arteries (MCA): normal. No aneurysms are seen. Posterior circulation: Visualized portions of the vertebral arteries: normal. Basilar artery: normal. Posterior cerebral arteries (PASTRY DECORATOR): normal. No aneurysms are seen. NECK CT ANGIOGRAPHY: Carotid system: Minimal left common carotid atherosclerotic plaque. The great vessels demonstrate a conventional anatomy as they arise from the aortic arch. Origins of the common carotid arteries appear patent. Common carotid arteries (CCA): normal. Internal carotid arteries (ICA): normal. Posterior circulation: The origins of the vertebral arteries both appear patent. Dominant appearance of the left vertebral artery. There is diffuse atresia/narrowing of the right vertebral artery Basilar artery: normal. Soft tissues: Visualized neck soft tissues demonstrate no suspicious abnormalities. Bones: Straightening of the normal cervical lordosis. Multilevel degenerative endplate sclerosis and spurring. Diffuse facet arthropathy. No fracture. IMPRESSION: No hemodynamically significant stenosis identified. Minimal punctate left common carotid atherosclerotic plaque is. Dominant appearance of the left vertebral artery and diffuse narrowing/atresia of the right vertebral artery. Any quantitative measurements of stenosis were performed using NASCET criteria. Dictated by: Albaro Guerra M.D. on 02/04/2019 at 12:19 Approved by: Albaro Guerra M.D. on 02/04/2019 at 12:33
== END 2019-02-04 13:24 | disposition short-term general hospital (02) ==
PROVIDERS: Emergency Provider Emergency Medicine; PCP Internal Medicine
DX: I63.89 Other cerebral infarction (principal)
CPT/HCPCS: 36415; 70450; 70496; 70498; 71045; 80053; 82550; 82962; 83690; 84484; 85025; 85610; 85730; 86850; 86900; 86901; 93005; 93010; 96361; 96374; 99285; 99291; Q3014; J2997; Q9967

== ENCOUNTER 2021-05-07 22:34 | Emergency (ER) | payer OTHER, SELFPAY ==
--- NOTE | 2021-05-07 22:39 | ED.CHESTPAIN ---
HPI - Chest Pain General Chief Complaint: Arrhythmia/Palpitations Stated Complaint: a-fib Time Seen by Provider: 05/07/21 22:35 History of Present Illness HPI narrative: 76-year-old male former smoker with history of AFib, hypertension on Eliquis presents by EMS for evaluation of a rapid heart rate. 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 He denies any symptoms particularly dizziness, weakness or lightheadedness. He has no chest pain or shortness of breath, he states that he can just feel his heart racing. He had extensive lab work yesterday at his primary care clinic that was all normal. He has been taking his Eliquis for quite some time and denies missing any doses. He was given Cardizem and route and on arrival heart rate had improved to the 70s, though he is still in atrial fibrillation. Related Data Home Medications Medication Instructions Recorded Confirmed hydrochlorothiazide 25 mg tablet 25 mg PO QAM 02/03/19 02/04/19 lisinopril 10 mg tablet 10 mg PO BEDTIME 02/03/19 02/04/19 simvastatin 20 mg tablet 20 mg PO BEDTIME 02/03/19 02/04/19 multivitamin 1 tab PO DAILY 02/04/19 02/04/19 vit C 250 mg-vit E 90 mg-zinc 40 1 cap PO BID 02/04/19 02/04/19 mg-copper 1 [id number]-rhakbu capsule (PreserVision AREDS-2) Allergies Allergy/AdvReac Type Severity Reaction Status Date / Time No Known Drug Allergies Allergy Verified 02/03/19 15:56 Review of Systems Review of Systems Narrative: GENERAL: Denies chills, fatigue, malaise, fever, sweats. HEENT: Denies sinus pain, ear pain, sore throat, difficulty swallowing, dizziness. RESPIRATORY: Denies dyspnea, cough, wheezing, hemoptysis, sputum. CARDIOVASCULAR: See HPI GASTROINTESTINAL: Denies nausea, vomiting, abdominal pain, diarrhea, constipation, melena. : Denies dysuria, frequency, incontinence, hematuria, urinary retention. MUSCULOSKELETAL: denies weakness, joint pain, or bony pain SKIN: Denies rash, skin lesions, or other NEUROLOGIC: Denies weakness, headache, numbness, change in speech, confusion, seizures, incoordination. PSYCHIATRIC: No concerning psychosocial issues. 12 point review of systems is negative except for those stated above Patient History Medical History (Updated 05/07/21 @ 22:56 by Geoffrey Coy DO) Atrial fibrillation High cholesterol Hypertension Surgical History S/P ablation of atrial fibrillation Social History Smoking Status: Former smoker Smoking Status: Former smoker alcohol intake frequency: a few times a week Substance Use Type: does not use Exam Narrative Exam Narrative: GENERAL: [76 year old patient appears stated age. Well-developed patient, in mild distress. HEAD: Atraumatic. Normocephalic. EYES: Pupils equal round and reactive. Extraocular motions intact. No scleral icterus. No injection or drainage. ENT: Nose without bleeding, purulent drainage. Throat without erythema, tonsillar hypertrophy or exudate. Airway patent. NECK: Trachea midline. Non tender CARDIOVASCULAR: Regular rate, irregular rhythm without murmurs, gallops, or rubs. RESPIRATORY: Clear to auscultation. Breath sounds equal bilaterally. No wheezes, rales, or rhonchi. GASTROINTESTINAL: Abdomen soft, non-tender, nondistended. EXTREMITIES: No edema or joint tenderness. BACK: Nontender without deformity or crepitance. No flank tenderness. NEURO: AOx3. SKIN: No rash or erythema of visible areas Initial Vital Signs Initial Vital Signs: Vital Signs Temperature 97.8 F 05/07/21 22:40 Pulse Rate 82 05/07/21 22:40 Respiratory Rate 16 05/07/21 22:40 Blood Pressure 117/78 05/07/21 22:40 Pulse Oximetry 96 05/07/21 22:40 Course Orders Ordered: ED Orders 05/07/21 22:25 Complete Blood Count AUTO DIFF Stat Comprehensive Metabolic Panel Stat Magnesium Stat Thyroid Stimulating Hormone Stat Troponin & CK Cardiac Panel Stat 05/07/21 22:35 EKG-12 Lead Stat Discontinued Medications Sodium Chloride (Normal Saline 0.9%) 1,000 mls @ 150 mls/hr IV CONT ZURDO Vital Signs Vital signs: Vital Signs - 8 hr 05/07/21 23:07 Pulse Rate 78 Respiratory Rate 16 Blood Pressure 116/74 Pulse Oximetry 97 MDM - Chest Pain Lab Data Result diagrams: 05/07/21 22:25 05/07/21 22:25 Labs: Lab Results 05/07/21 05/07/21 05/07/21 Range/Units 22:25 22:25 22:25 WBC 7.0 (4.5-11.0) X10^3/uL RBC 4.98 (4.5-5.9) X10^6/uL Hgb 16.3 (13.5-17.5) g/dL Hct 48.7 (41-53) % MCV 97.9 (80-100) fL MCH 32.7 (26-34) PG MCHC 33.4 (30-36) % RDW 14.0 (11.6-14.8) % Plt Count 195 (150-400) X10^3/uL Neut % (Auto) Not Reportable Lymph % (Auto) Not Reportable [place] % (Auto) Not Reportable Eos % (Auto) Not Reportable Baso % (Auto) Not Reportable Lymph # (Auto) Not Reportable [place] # (Auto) Not Reportable Baso # (Auto) Not Reportable Total Counted 100 Seg Neutrophils % 46.0 (38-70) % Band Neutrophils % 3.0 (3-7) % Lymphocytes % (Manual) 28.0 (25-45) % Atypical Lymphs % 17.0 H ( - 0) % Monocytes % (Manual) 4.0 (2-11) % Eosinophils % (Manual) 1.0 L (2-4) % Basophils % (Manual) 1.0 (0-1) % Neutrophils # (Manual) 3430 (5905-6037) /uL RBC Morphology See below Anisocytosis 1+ H Sodium 139 (137-145) mmol/L Potassium 4.4 (3.4-5.1) mmol/L Chloride 106 (98-107) mmol/L Carbon Dioxide 30 (22-32) mmol/L BUN 22 H (9-20) mg/dL Creatinine 0.97 (0.66-1.25) mg/dL Estimated GFR > 60.0 (>60) mL/min BUN/Creatinine Ratio 22.7 H (6-22) Glucose 95 (80-110) mg/dL Calcium 9.4 (8.4-10.2) mg/dL Magnesium 2.2 (1.6-2.3) mg/dL Total Bilirubin 1.0 (0.2-1.3) mg/dL AST 44 (17-59) IU/L ALT 32 (<50) IU/L Alkaline Phosphatase 78 (38-126) U/L Total Creatine Kinase 150 (55-170) U/L CK-MB (CK-2) 3.83 H (<2.37) ng/mL CK-MB (CK-2) Rel Index 2.6 (1.5-5.0) % Troponin I 0.035 H (0.01-0.034) ng/mL Total Protein 7.7 (6.3-8.2) g/dL Albumin 4.4 (3.5-5.0) g/dL Globulin 3.3 (1.7-4.1) g/dL Albumin/Globulin Ratio 1.3 (1.0-2.8) TSH 4.99 H (0.47-4.68) uIU/mL ECG Data Interpretation: Atrial fibrillation with rate in the 70s. No signs of ischemia such as ST depressions or T-wave inversions, occasional PVCs. MDM Narrative Medical decision making narrative: After extensive discussion with the patient at the bedside E would prefer to leave and not wait for labs. His heart rate is in the 70s, he is completely asymptomatic and hemodynamically stable. He had extensive labs yesterday that were all normal. He has been taking his medications as directed. He has been through this quite a few times and understands the risks and benefits of this decision. He knows the risk includes but is not limited to heart attack, permanent disability, and other. Discharge Plan Departure Patient Disposition: Home Clinical Impression: Atrial fibrillation Instructions: DI for Atrial Fibrillation Activity Restrictions/Additional Instructions: *You have been diagnosed with [atrial fibrillation ] *What to do: *Please continue to take your regular medications as directed. [ ] New medication prescriptions sent to your pharmacy: [ ] [ ] New medication written as a paper prescription [ ] No new medications given *Please follow up with your primary care provider in 2-3 days, call for an appointment. Let them know you were seen in the Emergency Department and that we ask that you be seen in follow up. We will electronically transmit a record of today's note if your PCP is in our system * as we discussed, please resume taking your metoprolol 12.5 mg daily until you follow-up with your floor coverings installer. Please call your cardiology office on Monday morning, let them know you were seen in the emergency department and would like you seen in follow-up *If you do not have a primary care provider please contact the [facility] Resource line at [phone]. They will ask some questions about your medical history and help get you set up with a doctor in the community. *Return to Emergency Department if you should have any new, worsening or concerning symptoms, such as [fever greater than 101 F, shaking chills, worsening pain, persistent vomiting or other bothersome symptoms] Prescriptions: No Action simvastatin 20 mg tablet 20 mg PO BEDTIME 0RF lisinopril 10 mg tablet 10 mg PO BEDTIME 0RF hydrochlorothiazide 25 mg tablet 25 mg PO QAM 0RF multivitamin Tablet 1 tab PO DAILY 0RF PreserVision AREDS-2 [id number] mm-bfch-gv-mg Capsule 1 cap PO BID 0RF Referrals: Varghese Iyer MD [Primary Care Provider] -
[2021-05-07 22:40] VITALS: BP 117/78; PULSE 82; RESP 16; TEMP 36.6; O2SAT 96
[2021-05-07 22:55] LABS: Alanine Aminotransferase 32 IU/L (<50); Albumin 4.4 g/dL (3.5-5.0); Albumin Globulin Ratio 1.3 (1.0-2.8); Alkaline Phosphatase 78 U/L (38-126); Aspartate Aminotransferase 44 IU/L (17-59); BUN Creatinine Ratio 22.7 (6-22); Blood Urea Nitrogen 22 mg/dL (9-20); Calcium 9.4 mg/dL (8.4-10.2); Carbon Dioxide 30 mmol/L (22-32); Chloride 106 mmol/L (98-107); Creatine Kinase 150 U/L (55-170); Estimated Glomerular Filt Rate > 60.0 mL/min (>60); Globulin 3.3 g/dL (1.7-4.1); Glucose 95 mg/dL (80-110); Magnesium 2.2 mg/dL (1.6-2.3); Potassium 4.4 mmol/L (3.4-5.1); Sodium 139 mmol/L (137-145); Total Protein 7.7 g/dL (6.3-8.2)
[2021-05-07 23:03] LABS: Hematocrit 48.7 % (41-53); Hemoglobin 16.3 g/dL (13.5-17.5); Mean Corpuscular HGB Conc 33.4 % (30-36); Mean Corpuscular Hemoglobin 32.7 PG (26-34); Mean Corpuscular Volume 97.9 fL (80-100); Platelet Count 195 X10^3/uL (150-400); Red Blood Cell Count 4.98 X10^6/uL (4.5-5.9)
[2021-05-07 23:05] LABS: Add Manual Diff / Slide Review YES
[2021-05-07 23:07] VITALS: BP 116/74; PULSE 78; RESP 16; O2SAT 97
[2021-05-07 23:07] LABS: Troponin I 0.035 ng/mL (0.01-0.034)
[2021-05-07 23:09] LABS: HEMOLYSIS 100 (0-50)
[2021-05-07 23:10] LABS: CKMB % Relative Index 2.6 % (1.5-5.0); Creatine Kinase MB 3.83 ng/mL (<2.37)
[2021-05-07 23:53] LABS: Thyroid Stimulating Hormone 4.99 uIU/mL (0.47-4.68)
[2021-05-08 02:07] LABS: Total Cells Counted 100
[2021-05-08 02:08] LABS: Anisocytosis 1+; Neutrophils Absolute Manual 3430 /uL (3000-5900)
== END 2021-05-07 23:08 | disposition home or self-care (01) ==
PROVIDERS: Emergency Provider Emergency Medicine; PCP Internal Medicine
DX: I48.91 Unspecified atrial fibrillation (principal); Z79.01 Long term (current) use of anticoagulants; Z87.891 Personal history of nicotine dependence
CPT/HCPCS: 80053; 82550; 82553; 83735; 84443; 84484; 85007; 85025; 93005; 93010; 99281; 99283

== ENCOUNTER 2021-08-09 09:06 | Emergency (ER) | payer OTHER, SELFPAY ==
[2021-08-09] VITALS (35 sets, daily range): BP systolic 88–135; BP diastolic 59–90; PULSE 55–135; RESP 12–30; TEMP 36.1; O2SAT 89–100; BMI 21.7
--- NOTE | 2021-08-09 09:27 | DI.RAD.S_ITS ---
PROCEDURE: XR CHEST 1V INDICATIONS: chest pain TECHNIQUE: One view of the chest was acquired. COMPARISON: , CR, XR CHEST 1V, 02/04/2019, 10:05. FINDINGS: Surgical changes and devices: None. Lungs and pleura: Lungs are clear. No pleural effusions or pneumothorax. Mediastinum: Mediastinal contours appear normal. Heart size is normal. Bones and chest wall: No suspicious bony lesions. Overlying soft tissues appear unremarkable. IMPRESSION: No acute cardiopulmonary disease. Dictated by: Júnior Peres M.D. on 08/09/2021 at 10:20 Approved by: Júnior Peres M.D. on 08/09/2021 at 10:22
--- NOTE | 2021-08-09 09:59 | PC.NURSE ---
Pt presents with ST 134. states he has been in a tachycardia with a h/o afib for 2 full days. decided to come in after his metoprolol was not controlling his HR. Appears well. Denies CP or SOB. anticoagulated with eliquis for afib and a CVA in the past without known deficits. States he takes his eliquis religiously and has not missed a dose.
[2021-08-09 10:04] LABS: INR 1.4 (0.9-1.3); Prothrombin Time 15.7 SECONDS (10.1-12.7)
[2021-08-09 10:06] LABS: Add Manual Diff / Slide Review NO; Basophils Absolute Auto 100 /uL (0-100); Basophils Percent Auto 1.1 % (0-2); Eosinophils Absolute Auto 200 /uL (0-450); Eosinophils Percent Auto 3.2 % (2-4); Hematocrit 48.3 % (41-53); Hemoglobin 16.6 g/dL (13.5-17.5); Lymphocytes Absolute Auto 1800 /uL (1100-4500); Lymphocytes Percent Auto 25.1 % (25-40); Mean Corpuscular HGB Conc 34.4 % (30-36); Mean Corpuscular Hemoglobin 33.3 PG (26-34); Mean Corpuscular Volume 96.8 fL (80-100); Monocytes Absolute Auto 700 /uL (0-900); Monocytes Percent Auto 9.3 % (3-14); Neutrophils Absolute Auto 4400 /uL (1500-7000); Neutrophils Percent Auto 61.3 % (50-75); Platelet Count 205 X10^3/uL (150-400); Red Blood Cell Count 4.99 X10^6/uL (4.5-5.9); White Blood Cell Count 7.2 X10^3/uL (4.5-11.0)
[2021-08-09 10:07] LABS: PTT Partial Thromboplastin Tim 33 SECONDS (26.4-36.2)
[2021-08-09 10:08] LABS: Alanine Aminotransferase 26 IU/L (<50); Albumin 3.8 g/dL (3.5-5.0); Albumin Globulin Ratio 1.2 (1.0-2.8); Alkaline Phosphatase 72 U/L (38-126); Aspartate Aminotransferase 33 IU/L (17-59); BUN Creatinine Ratio 20.4 (6-22); Bilirubin Total 0.8 mg/dL (0.2-1.3); Blood Urea Nitrogen 21 mg/dL (9-20); Calcium 9.1 mg/dL (8.4-10.2); Carbon Dioxide 31 mmol/L (22-32); Chloride 104 mmol/L (98-107); Creatine Kinase 69 U/L (55-170); Estimated Glomerular Filt Rate > 60 mL/min (>60); Globulin 3.1 g/dL (1.7-4.1); Glucose 65 mg/dL (80-110); HEMOLYSIS < 15 (0-50); Lipase 721 U/L (23-300); Magnesium 2.2 mg/dL (1.6-2.3); Potassium 4.3 mmol/L (3.4-5.1); Sodium 139 mmol/L (137-145); Total Protein 6.9 g/dL (6.3-8.2)
[2021-08-09] MEDS: METOPROLOL TARTRATE 5 MG/5 ML INJ IV (10:12)
[2021-08-09 10:17] LABS: NT-proBNP (BNP-Adult 18+) 3000 pg/mL (<450)
[2021-08-09 10:22] LABS: Troponin I 0.012 ng/mL (0.01-0.034)
--- NOTE | 2021-08-09 10:27 | PC.NURSE ---
pt appears to have converted to NSR after 1 IV dose of 5mg metoprolol. RT called for repeat EKG. Dr Pnealoza made aware.
[2021-08-09 10:47] LABS: COVID19 -Nasal RAPID Negative (Negative)
[2021-08-09 11:05] LABS: TSH w/ Reflex to FT4 2.09 uIU/mL (0.47-4.68)
--- NOTE | 2021-08-09 11:39 | ED_ITS ---
HPI - Arrhythmia/Palpitations General Chief Complaint: Arrhythmia/Palpitations Stated Complaint: States tachy 1.5 days Time Seen by Provider: 08/09/21 09:36 Source: patient Mode of arrival: Ambulatory Limitations: no limitations History of Present Illness HPI narrative: This is a 76-year-old male with known history of atrial fib and atrial flutter and prior stroke when on anticoagulated. Who 2 nights ago started having irregular heartbeat that was tachycardic, yesterday at about 1500 he felt it continued to be tachycardic but regular about 135 and constant. He denies any chest pain or pressure, little bit of shortness of breath with exertion, slightly dizzy but no syncope. No nausea or vomiting, no issues with bowel movements, urination or swelling in his extremities. Patient is on Eliquis has been taking for last 2 and half years without any breaks, metoprolol, lisinopril, HCTZ, aspirin daily and atorvastatin. Patient follows with cardiology with Dr. Chapin in [place]. He had a cardiac ablation 8 years ago at [facility] with a different cardiology group. Related Data Home Medications Medication Instructions Recorded Confirmed hydrochlorothiazide 25 mg tablet 25 mg PO QAM 02/03/19 02/04/19 lisinopril 10 mg tablet 10 mg PO BEDTIME 02/03/19 02/04/19 simvastatin 20 mg tablet 20 mg PO BEDTIME 02/03/19 02/04/19 multivitamin 1 tab PO DAILY 02/04/19 02/04/19 vit C 250 mg-vit E 90 mg-zinc 40 1 cap PO BID 02/04/19 02/04/19 mg-copper 1 [id number]-[id number] capsule (PreserVision AREDS-2) Allergies Allergy/AdvReac Type Severity Reaction Status Date / Time No Known Drug Allergies Allergy Verified 02/03/19 15:56 Review of Systems Review of Systems ROS Unobtainable: All systems reviewed & are unremarkable except as noted in HPI and below Patient History Medical History (Updated 08/09/21 @ 14:35 by Emeli Penaloza DO) Atrial fibrillation High cholesterol Hypertension Surgical History S/P ablation of atrial fibrillation Social History Smoking Status: Former smoker Smoking Status: Former smoker alcohol intake frequency: a few times a week Alcohol type: beer Substance Use Type: does not use Exam Narrative Exam Narrative: GENERAL: Alert and oriented x three, obese male HEENT: Head normocephalic, atraumatic, EOMI, pupils reactive, face symmetric, moist mucous membranes NECK: Supple, full range of motion CARDIOVASCULAR: Regular rhythm, tachycardic without murmurs, rubs or gallops. No JVD. No swelling bilateral lower extremities. RESPIRATORY: Breath sounds equal bilaterally, no wheezes rales or rhonchi. ABDOMEN: Soft, nontender. Normoactive bowel sounds all 4 quadrants. No guarding or rebound, rigidity, no mass : No CVA tenderness EXTREMITIES: Normal range of motion, no clubbing or edema. Neurovascularly intact NEUROLOGICAL: Cranial nerves II through XII grossly intact. Moving all extremities SKIN: Warm, dry, no petechiae, no rashes or lesions. Initial Vital Signs Initial Vital Signs: Vital Signs Temperature 97 F L 08/09/21 09:11 Pulse Rate 135 H 08/09/21 09:11 Respiratory Rate 18 08/09/21 09:11 Blood Pressure 119/79 08/09/21 09:11 Pulse Oximetry 98 08/09/21 09:11 Oxygen Delivery Method 08/09/21 09:11 Procedures Cardioversion Time of Cardioversion: 13:11 Consent Signed: Yes Indication: atrial flutter with hypotension. Stability: Stable Number of attempts (shocks): 1 Joules used: 150 Cardiac rhythm post-cardioversion: NSR Procedural Sedation Time of procedure: 13:11 Consent signed: Yes Time out performed: Yes Indication: cardioversion ASA Class: II Mallampati Airway Classification: Class II Time of Last PO Intake: 08:00 Preparation: manager cardiac cath applied, pulse oximeter, capnometry used, supplemental O2 applied, suction/airway equipment at bedside and IV secured IV Etomidate dose (mg): 7.5 ED Sedation Level: Moderate (Concious) Patient Tolerated Procedure: Well Complications: Respiratory Depression-Repositioning Required (BVM assist intermittently.) Course Orders Ordered: Discontinued Medications Etomidate (Etomidate 2 Mg/Ml 10 Ml Vial) 7.5 mg 0.1 mg/kg (7.5 mg) IV NOW ONE Stop: 08/09/21 12:48 Last Admin: 08/09/21 13:31 Dose: 7.5 mg Documented By: BS Metoprolol Tartrate (Metoprolol Tartrate 5 Mg/5 Ml Inj) 5 mg IV NOW ONE Stop: 08/09/21 10:08 Last Admin: 08/09/21 10:12 Dose: 5 mg Documented By: CTS Reevaluation(s) Reevaluation #1: Patient received metoprolol converted to sinus rhythm he still is asymptomatic. Reviewed his findings his troponin was indeterminate but may be secondary to demand. Plan for repeat and if continues to be sinus rhythm without does significantly rising troponin will get discharge home but with Consultations Consultation #1: Dr. Guerra, cardiology [place] for Dr. Chapin.? Recommends go ahead and cardioverting patient today as he is regularly anticoagulated.? If unsuccessful but rate controlled can follow-up outpatient.? If patient is cardioverted not if his blood pressure will tolerate can bump up his metoprolol. Time: 12:23 Vital Signs Vital signs: Vital Signs - 8 hr 08/09/21 12:30 08/09/21 12:30 08/09/21 13:00 Pulse Rate 63 Respiratory Rate 18 Blood Pressure 94/65 108/64 Pulse Oximetry 98 Oxygen Delivery Method 08/09/21 13:00 08/09/21 13:28 08/09/21 13:28 Pulse Rate 78 90 Respiratory Rate 17 18 Blood Pressure 119/79 Pulse Oximetry 99 96 Oxygen Delivery Method 08/09/21 13:30 08/09/21 13:30 08/09/21 13:34 Pulse Rate 87 78 Respiratory Rate 15 16 Blood Pressure 135/67 Pulse Oximetry 98 99 Oxygen Delivery Method 08/09/21 13:34 08/09/21 13:36 08/09/21 13:36 Pulse Rate 55 L Respiratory Rate 14 Blood Pressure 116/83 114/69 Pulse Oximetry 99 Oxygen Delivery Method 08/09/21 13:39 08/09/21 13:39 08/09/21 13:42 Pulse Rate 70 60 Respiratory Rate 21 22 Blood Pressure 133/85 Pulse Oximetry 98 99 Oxygen Delivery Method 08/09/21 13:42 08/09/21 13:45 08/09/21 13:45 Pulse Rate 62 Respiratory Rate 19 Blood Pressure 129/80 115/75 Pulse Oximetry 100 Oxygen Delivery Method Room Air 08/09/21 13:48 08/09/21 13:48 08/09/21 13:51 Pulse Rate 58 L 60 Respiratory Rate 18 12 Blood Pressure 118/71 Pulse Oximetry 99 100 Oxygen Delivery Method 08/09/21 13:51 08/09/21 13:55 08/09/21 13:55 Pulse Rate 78 Respiratory Rate 29 H Blood Pressure 104/65 110/90 Pulse Oximetry 100 Oxygen Delivery Method 08/09/21 13:58 08/09/21 13:58 08/09/21 14:00 Pulse Rate 60 Respiratory Rate 21 Blood Pressure 112/67 117/68 Pulse Oximetry 100 Oxygen Delivery Method 08/09/21 14:00 08/09/21 14:03 08/09/21 14:03 Pulse Rate 59 L 62 Respiratory Rate 20 19 Blood Pressure 110/69 Pulse Oximetry 100 100 Oxygen Delivery Method 08/09/21 14:06 08/09/21 14:06 08/09/21 14:10 Pulse Rate 60 Respiratory Rate 17 Blood Pressure 100/66 113/76 Pulse Oximetry 99 Oxygen Delivery Method 08/09/21 14:10 08/09/21 14:12 08/09/21 14:12 Pulse Rate 70 60 Respiratory Rate 30 H 16 Blood Pressure 109/68 Pulse Oximetry 89 L 100 Oxygen Delivery Method 08/09/21 14:15 08/09/21 14:15 08/09/21 14:18 Pulse Rate 60 61 Respiratory Rate 15 14 Blood Pressure 104/66 Pulse Oximetry 99 100 Oxygen Delivery Method 08/09/21 14:18 08/09/21 14:21 08/09/21 14:21 Pulse Rate 64 Respiratory Rate 21 Blood Pressure 113/72 116/65 Pulse Oximetry 100 Oxygen Delivery Method 08/09/21 14:24 08/09/21 14:24 08/09/21 14:27 Pulse Rate 62 63 Respiratory Rate 22 19 Blood Pressure 98/71 Pulse Oximetry 100 100 Oxygen Delivery Method 08/09/21 14:27 08/09/21 14:30 08/09/21 14:30 Pulse Rate 62 Respiratory Rate 18 Blood Pressure 102/63 109/66 Pulse Oximetry 99 Oxygen Delivery Method 08/09/21 14:33 08/09/21 14:33 08/09/21 14:36 Pulse Rate 62 Respiratory Rate 15 Blood Pressure 103/66 102/65 Pulse Oximetry 98 Oxygen Delivery Method 08/09/21 14:36 08/09/21 14:00 Pulse Rate 64 101 H Respiratory Rate 29 H 16 Blood Pressure Pulse Oximetry 98 Oxygen Delivery Method MDM - Arrhythmia/Palpitations Lab Data Result diagrams: 08/09/21 09:46 08/09/21 09:46 Labs: Lab Results 08/09/21 08/09/21 08/09/21 Range/Units 09:46 09:46 09:46 WBC 7.2 (4.5-11.0) X10^3/uL RBC 4.99 (4.5-5.9) X10^6/uL Hgb 16.6 (13.5-17.5) g/dL Hct 48.3 (41-53) % MCV 96.8 (80-100) fL MCH 33.3 (26-34) PG MCHC 34.4 (30-36) % RDW 13.0 (11.6-14.8) % Plt Count 205 (150-400) X10^3/uL Neut % (Auto) 61.3 (50-75) % Lymph % (Auto) 25.1 (25-40) % [place] % (Auto) 9.3 (3-14) % Eos % (Auto) 3.2 (2-4) % Baso % (Auto) 1.1 (0-2) % Neut # (Auto) 4400 (1516-2764) /uL Lymph # (Auto) 1800 (0446-1753) /uL [place] # (Auto) 700 (0-900) /uL Eos # (Auto) 200 (0-450) /uL Baso # (Auto) 100 (0-100) /uL PT 15.7 H (10.1-12.7) SECONDS INR 1.4 H (0.9-1.3) APTT 33 D (26.4-36.2) SECONDS Sodium 139 (137-145) mmol/L Potassium 4.3 (3.4-5.1) mmol/L Chloride 104 (98-107) mmol/L Carbon Dioxide 31 (22-32) mmol/L BUN 21 H (9-20) mg/dL Creatinine 1.03 (0.66-1.25) mg/dL Estimated GFR > 60 (>60) mL/min BUN/Creatinine Ratio 20.4 (6-22) Glucose 65 L (80-110) mg/dL Calcium 9.1 (8.4-10.2) mg/dL Magnesium 2.2 (1.6-2.3) mg/dL Total Bilirubin 0.8 (0.2-1.3) mg/dL AST 33 (17-59) IU/L ALT 26 (<50) IU/L Alkaline Phosphatase 72 (38-126) U/L Total Creatine Kinase 69 (55-170) U/L CK-MB (CK-2) TNP CK-MB (CK-2) Rel Index TNP Troponin I 0.012 (0.01-0.034) ng/mL NT-Pro-B Natriuret Pep (<450) pg/mL Total Protein 6.9 (6.3-8.2) g/dL Albumin 3.8 (3.5-5.0) g/dL Globulin 3.1 (1.7-4.1) g/dL Albumin/Globulin Ratio 1.2 (1.0-2.8) Lipase 721 H (23-300) U/L TSH (0.47-4.68) uIU/mL SARS-CoV-2 (PCR) (Negative) 08/09/21 08/09/21 08/09/21 Range/Units 09:46 09:46 10:24 WBC (4.5-11.0) X10^3/uL RBC (4.5-5.9) X10^6/uL Hgb (13.5-17.5) g/dL Hct (41-53) % MCV (80-100) fL MCH (26-34) PG MCHC (30-36) % RDW (11.6-14.8) % Plt Count (150-400) X10^3/uL Neut % (Auto) (50-75) % Lymph % (Auto) (25-40) % [place] % (Auto) (3-14) % Eos % (Auto) (2-4) % Baso % (Auto) (0-2) % Neut # (Auto) (6082-1289) /uL Lymph # (Auto) (1142-5031) /uL [place] # (Auto) (0-900) /uL Eos # (Auto) (0-450) /uL Baso # (Auto) (0-100) /uL PT (10.1-12.7) SECONDS INR (0.9-1.3) APTT (26.4-36.2) SECONDS Sodium (137-145) mmol/L Potassium (3.4-5.1) mmol/L Chloride (98-107) mmol/L Carbon Dioxide (22-32) mmol/L BUN (9-20) mg/dL Creatinine (0.66-1.25) mg/dL Estimated GFR (>60) mL/min BUN/Creatinine Ratio (6-22) Glucose (80-110) mg/dL Calcium (8.4-10.2) mg/dL Magnesium (1.6-2.3) mg/dL Total Bilirubin (0.2-1.3) mg/dL AST (17-59) IU/L ALT (<50) IU/L Alkaline Phosphatase (38-126) U/L Total Creatine Kinase (55-170) U/L CK-MB (CK-2) CK-MB (CK-2) Rel Index Troponin I (0.01-0.034) ng/mL NT-Pro-B Natriuret Pep 3000 H (<450) pg/mL Total Protein (6.3-8.2) g/dL Albumin (3.5-5.0) g/dL Globulin (1.7-4.1) g/dL Albumin/Globulin Ratio (1.0-2.8) Lipase (23-300) U/L TSH 2.09 (0.47-4.68) uIU/mL SARS-CoV-2 (PCR) Negative (Negative) Imaging Data Chest x-ray: Radiologist's Impresson: [address] [address] XRay Report Signed Patient: González Ayon MR#: [id number] : 1945 Acct:[id number] Age/Sex: 76 / M Date of Service: 08/09/21 Loc: ED Accession Number: [id number] ?? Procedure: XR chest 1V Ordering Provider: Emeli Penaloza D.O. PROCEDURE:? XR CHEST 1V ? INDICATIONS:? chest pain ? TECHNIQUE:? One view of the chest was acquired.? ? COMPARISON:? [facility], CR, XR CHEST 1V, 02/04/2019, 10:05. ? FINDINGS:? ? Surgical changes and devices:? None.? ? Lungs and pleura:? Lungs are clear.? No pleural effusions or pneumothorax.? ? Mediastinum:? Mediastinal contours appear normal.? Heart size is normal.? ? Bones and chest wall:? No suspicious bony lesions.? Overlying soft tissues appe ar unremarkable.? ? IMPRESSION:? No acute cardiopulmonary disease. ? ? Dictated by: Júnior Peres M.D. on 08/09/2021 at 10:20 ? ? Approved by: Júnior Peres M.D. on 08/09/2021 at 10:22 ECG Data Attestation: I personally reviewed and interpreted this ECG as follows: Prior ECG tracings: available for review Interpretation: Of possible sinus tachycardia incomplete right bundle branch with a rate of 134 NE 144 QRS of 96 and QTC of 439. EKG 2 shows atrial flutter, rate of 95 QRS of 94 with a QTC of 487. No acute ST elevation appreciated. Patient has prior from 05/07/[address] changes. EKG 3, sinus rhythm first-degree AV block with frequent PVCs, rate 80 1p are 224, QRS 86 and QTC 471. MDM Narrative Medical decision making narrative: This is a 76-year-old male who arrives with tachycardic but regular rhythm possibly atrial flutter, patient does have a history AFib and flutter he has had a past ablation about 8 years ago he is fully anticoagulated. With dose of IV metoprolol he slows but continues to be an a flutter rhythm but is rate controlled. Labs do not show major abnormalities discussed with his cardiology team they feel based on patient's chronic anticoagulation that he would probably benefit from being cardioverted here in the department. Procedure was offered to the patient and he consents. Patient tolerated the procedure. Cardiology recommended beta-marlee pressure would tolerate but he continues to be mildly hypotensive so this was shared with the patient but we did not increase his metoprolol dose today. Return precautions discussed, discussed plan for follow- up. All questions answered. Discharge Plan Departure Patient Disposition: Home Clinical Impression: Atrial flutter with rapid ventricular response Instructions: DI for Atrial Flutter Activity Restrictions/Additional Instructions: Please follow-up with your cardiology team. I spoke with Dr. Guerra from your cardiology team. They would like to follow-up with you please call the office to set up a follow-up appointment. We did discuss increasing your metoprolol dose but your blood pressure continues to be low here in the department so I would not increase it today. You did have a cardioversion today, you do seem to be sensitive to etomidate the medication used during your cardioversion. You had a brief episode of apnea but no other issues during your cardioversion. Please continue home medications as prescribed. You may take 1 additional dose of metoprolol if you have a recurrence. Please return if you are having any new or worsening fast heartbeat, irregular, chest pain, shortness of breath, lightheadedness or passing out, new swelling in her extremities or other new or concerning symptoms. Prescriptions: No Action simvastatin 20 mg tablet 20 mg PO BEDTIME lisinopril 10 mg tablet 10 mg PO BEDTIME hydrochlorothiazide 25 mg tablet 25 mg PO QAM multivitamin Tablet 1 tab PO DAILY PreserVision AREDS-2 [id number]-[id number]-mg Capsule 1 cap PO BID Referrals: Zhen Jim DO [Primary Care Provider] - Visit Report Forms: Patient Portal/API
[2021-08-09] MEDS: ETOMIDATE 2 MG/ML 10 ML VIAL 7.5 MG IV (13:31)
== END 2021-08-09 14:46 | disposition home or self-care (01) ==
PROVIDERS: Emergency Provider Emergency Medicine; PCP Internal Medicine
DX: I48.92 Unspecified atrial flutter (principal); Z79.01 Long term (current) use of anticoagulants; R07.9 Chest pain, unspecified; Z20.822 Contact with and (suspected) exposure to COVID-19
CPT/HCPCS: 36415; 71045; 80053; 82550; 83690; 83735; 83880; 84443; 84484; 85025; 85610; 85730; 87635; 92960; 93005; 93010; 96374; 99152; 99153; 99285; 99291; C9803

== ENCOUNTER 2023-03-07 06:42 | Emergency (ER) | payer OTHER, SELFPAY ==
[2023-03-07] VITALS (23 sets, daily range): BP systolic 116–139; BP diastolic 67–92; PULSE 65–124; RESP 7–23; TEMP 36.6; O2SAT 95–100; BMI 23.7
--- NOTE | 2023-03-07 06:55 | DI.RAD.S_ITS ---
PROCEDURE: XR CHEST 1V INDICATIONS: chest pain TECHNIQUE: One view of the chest was acquired. COMPARISON: [facility], CR, XR CHEST 1V, 02/04/2019, 10:05. [facility], CR, XR CHEST 1V, 08/09/2021, 9:36. FINDINGS: Surgical changes and devices: None. Lungs and pleura: Lungs are clear. No pleural effusions or pneumothorax. Mediastinum: Mediastinal contours appear normal. Heart size is normal. Bones and chest wall: No suspicious bony lesions. Overlying soft tissues appear unremarkable. IMPRESSION: No acute cardiopulmonary abnormality is seen. Dictated by: Júnior Peres M.D. on 03/07/2023 at 8:02 Approved by: Júnior Peres M.D. on 03/07/2023 at 8:04
[2023-03-07 07:16] LABS: Add Manual Diff / Slide Review NO; Basophils Absolute Auto 0 /uL (0-100); Basophils Percent Auto 0.7 % (0-2); Eosinophils Absolute Auto 100 /uL (0-450); Eosinophils Percent Auto 2.6 % (2-4); Hematocrit 47.7 % (41-53); Hemoglobin 16.1 g/dL (13.5-17.5); Lymphocytes Absolute Auto 1700 /uL (1100-4500); Lymphocytes Percent Auto 34.4 % (25-40); Mean Corpuscular HGB Conc 33.9 % (30-36); Mean Corpuscular Hemoglobin 33.2 PG (26-34); Mean Corpuscular Volume 97.9 fL (80-100); Monocytes Absolute Auto 300 /uL (0-900); Monocytes Percent Auto 5.5 % (3-14); Neutrophils Absolute Auto 2800 /uL (1500-7000); Neutrophils Percent Auto 56.8 % (50-75); Platelet Count 188 X10^3/uL (150-400); Red Blood Cell Count 4.87 X10^6/uL (4.5-5.9); Red Cell Distribution Width 13.8 % (11.6-14.8); White Blood Cell Count 4.8 X10^3/uL (4.5-11.0)
[2023-03-07 07:24] LABS: INR 1.4 (0.9-1.3); Prothrombin Time 16.6 SECONDS (9.4-12.5)
[2023-03-07 07:27] LABS: PTT Partial Thromboplastin Tim 34 SECONDS (25.1-36.5)
[2023-03-07 07:32] LABS: Alanine Aminotransferase 28 IU/L (<50); Albumin 4.1 g/dL (3.5-5.0); Albumin Globulin Ratio 1.2 (1.0-2.8); Alkaline Phosphatase 92 U/L (38-126); Aspartate Aminotransferase 31 IU/L (17-59); BUN Creatinine Ratio 22.6 (6-22); Bilirubin Total 0.9 mg/dL (0.2-1.3); Blood Urea Nitrogen 19 mg/dL (9-20); Calcium 9.6 mg/dL (8.4-10.2); Carbon Dioxide 29 mmol/L (22-32); Chloride 103 mmol/L (98-107); Creatine Kinase 73 U/L (55-170); Estimated Glomerular Filt Rate > 60 mL/min (>60); Globulin 3.3 g/dL (1.7-4.1); Glucose 154 mg/dL (80-110); HEMOLYSIS 18 (0-50); Lipase 131 U/L (23-300); Magnesium 2.1 mg/dL (1.6-2.3); Potassium 3.9 mmol/L (3.4-5.1); Sodium 139 mmol/L (137-145); Total Protein 7.4 g/dL (6.3-8.2)
--- NOTE | 2023-03-07 07:33 | ED_ITS ---
HPI - Arrhythmia/Palpitations General Chief Complaint: Arrhythmia/Palpitations Stated Complaint: afib Time Seen by Provider: 03/07/23 07:06 Source: patient Mode of arrival: Ambulatory History of Present Illness HPI narrative: 77-year-old man with a history of atrial fibrillation and atrial flutter multiple ablations and cardioversions. Presents today with concerns that he is in atrial fibrillation. Please that he has been in for about 12 hours. Not having chest pain or shortness of breath, feels a little lightheaded at times. He has been taking Eliquis for anticoagulation has not interrupted it, regularly takes Toprol-XL 12.5 mg daily and took an extra 25 mg last night because he was in atrial fibrillation. He remains in AFib. He is interested in being cardioverted. He is otherwise well without fevers shortness of breath cough or other acute symptoms. He did eat breakfast this morning at 6:00 a.m.. Related Data Home Medications Medication Instructions Recorded Confirmed hydrochlorothiazide 25 mg tablet 25 mg PO QAM 02/03/19 02/04/19 lisinopril 10 mg tablet 10 mg PO BEDTIME 02/03/19 02/04/19 simvastatin 20 mg tablet 20 mg PO BEDTIME 02/03/19 02/04/19 multivitamin 1 tab PO DAILY 02/04/19 02/04/19 vit C 250 mg-vit E 90 mg-zinc 40 1 cap PO BID 02/04/19 02/04/19 mg-copper 1 [id number] capsule (PreserVision AREDS-2) Allergies Allergy/AdvReac Type Severity Reaction Status Date / Time No Known Drug Allergies Allergy Verified 02/03/19 15:56 Patient History Medical History (Updated 03/07/23 @ 08:36 by Jose Alfredo Silver MD) High cholesterol Hypertension Atrial fibrillation Surgical History S/P ablation of atrial fibrillation Social History Smoking Status: Former smoker Smoking Status: Former smoker alcohol intake frequency: a few times a week Alcohol type: beer Substance Use Type: does not use Exam Initial Vital Signs Initial Vital Signs: Vital Signs Temperature 97.8 F 03/07/23 06:51 Pulse Rate 124 H 03/07/23 06:51 Respiratory Rate 18 01/09/24 06:51 Blood Pressure 138/92 H 03/07/23 06:51 Pulse Oximetry 100 03/07/23 06:51 Oxygen Delivery Method Room Air 03/07/23 06:51 Const General: No acute distress HENAK Head: normocephalic and atraumatic Resp Effort & Inspection: normal respiratory effort Auscultation: clear to auscultation bilaterally Cardio Other: Tachycardic irregularly irregular no murmur or gallop Skin General: dry skin and warm Neuro General: patient awake, patient oriented x3 and gait normal Procedures Cardioversion Time of Cardioversion: 07:55 Indication: Atrial fibrillation with rapid ventricular response Stability: Stable Number of attempts (shocks): 1 Joules used: 150 Cardiac rhythm post-cardioversion: Normal sinus Procedural Sedation Time of procedure: 07:50 Consent signed: Yes Time out performed: Yes Indication: cardioversion Presedation Evaluation: See physical exam ASA Class: II Mallampati Airway Classification: Class II Time of Last PO Intake: 06:00 IV Etomidate dose (mg): 7.9 Intraservice time/total sedation time (min): 15 Patient Tolerated Procedure: Well Complications: none Course Orders Ordered: ED Orders 03/07/23 06:55 XR chest 1V Stat EKG-12 Lead Stat 03/07/23 07:05 Complete Blood Count AUTO DIFF Stat Comprehensive Metabolic Panel Stat Lipase Stat Magnesium Stat PTT Partial Thromboplastin Rajinder Stat Prothrombin Time INR Stat Troponin & CK Cardiac Panel Stat 03/07/23 08:04 EKG-12 Lead Stat Discontinued Medications Etomidate (Etomidate 2 Mg/Ml 10 Ml Vial) 7.9 mg 0.1 mg/kg (7.9 mg) IV NOW ONE Stop: 03/07/23 07:32 Last Admin: 03/07/23 07:50 Dose: 7.9 mg Documented By: RANDY Vital Signs Vital signs: Vital Signs - 8 hr 03/07/23 06:51 03/07/23 06:51 03/07/23 07:00 Temperature 97.8 F Pulse Rate 124 H 124 H 121 H Respiratory Rate 18 19 Blood Pressure 138/92 H Pulse Oximetry 100 98 98 Oxygen Delivery Method Room Air Room Air Room Air Oxygen Flow Rate 03/07/23 07:17 03/07/23 07:17 03/07/23 07:30 Temperature Pulse Rate 123 H Respiratory Rate 20 Blood Pressure 117/84 127/90 Pulse Oximetry 95 Oxygen Delivery Method Oxygen Flow Rate 03/07/23 07:30 03/07/23 07:36 03/07/23 07:36 Temperature Pulse Rate 124 H 123 H Respiratory Rate 23 19 Blood Pressure 121/78 Pulse Oximetry 96 96 Oxygen Delivery Method Oxygen Flow Rate 03/07/23 07:40 03/07/23 07:40 03/07/23 07:44 Temperature Pulse Rate 123 H Respiratory Rate 20 Blood Pressure 139/72 116/75 Pulse Oximetry 96 Oxygen Delivery Method Oxygen Flow Rate 03/07/23 07:44 03/07/23 07:48 03/07/23 07:48 Temperature Pulse Rate 123 H 119 H Respiratory Rate 14 17 Blood Pressure 126/71 Pulse Oximetry 96 96 Oxygen Delivery Method Oxygen Flow Rate 03/07/23 07:52 03/07/23 07:52 03/07/23 07:55 Temperature Pulse Rate 119 H 121 H Respiratory Rate 17 18 Blood Pressure 127/73 128/80 Pulse Oximetry 97 97 Oxygen Delivery Method Oxygen Flow Rate 03/07/23 07:56 03/07/23 07:56 03/07/23 07:58 Temperature Pulse Rate 120 H Respiratory Rate 15 Blood Pressure 138/89 135/91 H Pulse Oximetry 97 Oxygen Delivery Method Nasal Cannula Oxygen Flow Rate 1 03/07/23 07:58 03/07/23 08:00 03/07/23 08:00 Temperature Pulse Rate 123 H 70 Respiratory Rate 18 18 Blood Pressure 127/86 Pulse Oximetry 97 96 Oxygen Delivery Method Nasal Cannula Nasal Cannula Oxygen Flow Rate 1 1 03/07/23 08:20 03/07/23 08:27 Temperature Pulse Rate 72 65 Respiratory Rate 16 16 Blood Pressure 123/72 116/73 Pulse Oximetry 96 97 Oxygen Delivery Method Oxygen Flow Rate MDM - Arrhythmia/Palpitations Medical Records Medical records narrative: Reviewed prior ED note where he was cardioverted out of atrial flutter Lab Data Lab results narrative: With diff, CMP and troponin, all unremarkable 03/07/23 07:05 03/07/23 07:05 Labs: Lab Results 03/07/23 Range/Units 07:05 WBC 4.8 (4.5-11.0) X10^3/uL RBC 4.87 (4.5-5.9) X10^6/uL Hgb 16.1 (13.5-17.5) g/dL Hct 47.7 (41-53) % MCV 97.9 (80-100) fL MCH 33.2 (26-34) PG MCHC 33.9 (30-36) % RDW 13.8 (11.6-14.8) % Plt Count 188 (150-400) X10^3/uL Neut % (Auto) 56.8 (50-75) % Lymph % (Auto) 34.4 (25-40) % Swain % (Auto) 5.5 (3-14) % Eos % (Auto) 2.6 (2-4) % Baso % (Auto) 0.7 (0-2) % Neut # (Auto) 2800 (8648-8678) /uL Lymph # (Auto) 1700 (6470-9833) /uL Swain # (Auto) 300 (0-900) /uL Eos # (Auto) 100 (0-450) /uL Baso # (Auto) 0 (0-100) /uL PT 16.6 H (9.4-12.5) SECONDS INR 1.4 H (0.9-1.3) APTT 34 (25.1-36.5) SECONDS Sodium 139 (137-145) mmol/L Potassium 3.9 (3.4-5.1) mmol/L Chloride 103 (98-107) mmol/L Carbon Dioxide 29 (22-32) mmol/L BUN 19 (9-20) mg/dL Creatinine 0.84 (0.66-1.25) mg/dL Estimated GFR > 60 (>60) mL/min BUN/Creatinine Ratio 22.6 H (6-22) Glucose 154 H (80-110) mg/dL Calcium 9.6 (8.4-10.2) mg/dL Magnesium 2.1 (1.6-2.3) mg/dL Total Bilirubin 0.9 (0.2-1.3) mg/dL AST 31 (17-59) IU/L ALT 28 (<50) IU/L Alkaline Phosphatase 92 (38-126) U/L Total Creatine Kinase 73 (55-170) U/L Troponin I 0.023 (0.01-0.034) ng/mL Total Protein 7.4 (6.3-8.2) g/dL Albumin 4.1 (3.5-5.0) g/dL Globulin 3.3 (1.7-4.1) g/dL Albumin/Globulin Ratio 1.2 (1.0-2.8) Lipase 131 (23-300) U/L Imaging Data Chest x-ray: My Impression: Independently reviewed chest x-ray, no acute findings Radiologist's Impresson: Radiology report indicates no acute disease ECG Data Interpretation: Initial EKG shows a regular narrow complex tachycardia at 126. Differential included atrial flutter, atrial fibrillation and SVT. At the bedside there was clear irregularity indicating atrial fibrillation no ischemic changes. Following cardioversion he is in normal sinus rhythm at 71 [place] interval is prolonged at [address] segment changes MDM Narrative Medical decision making narrative: 77-year-old man with a history of atrial fibrillation presents in atrial fibrillation. Onset was about 12 hours prior to arrival, he has been on anticoagulation without interruption. He has been cardioverted before and is interested in being cardioverted again. Were no contraindications and he was cardioverted with etomidate has Monday. Sinus rhythm was restored he is discharged to home. He is accompanied by for driving Discharge Plan Departure Patient Disposition: Home Clinical Impression: Atrial fibrillation Qualifiers: Atrial fibrillation type: paroxysmal Qualified Code(s): I48.0 - Paroxysmal atrial fibrillation Instructions: DI for Atrial Fibrillation Activity Restrictions/Additional Instructions: Today wePerformed electrical cardioversion for atrial fibrillation. do not drive today as we gave you sedating medications. Continue previous home medications. I recommend that you contact your center director lead teacher later today to arrange for Follow-up. Prescriptions: No Action simvastatin 20 mg tablet 20 mg PO BEDTIME lisinopril 10 mg tablet 10 mg PO BEDTIME hydrochlorothiazide 25 mg tablet 25 mg PO QAM multivitamin Tablet 1 tab PO DAILY PreserVision AREDS-2 [id number]-[id number]-[id number]-mg Capsule 1 cap PO BID Referrals: Zhen Jim DO [Primary Care Provider] - Stand Alone Forms: Patient Portal/API
[2023-03-07 07:44] LABS: Troponin I 0.023 ng/mL (0.01-0.034)
[2023-03-07] MEDS: ETOMIDATE 2 MG/ML 10 ML VIAL 7.9 MG IV (07:50)
--- NOTE | 2023-03-07 08:03 | PC.NURSE ---
Procedural sedation. Etomidate administered by physician. RT at bedside.
--- NOTE | 2023-03-07 08:46 | PC.NURSE ---
Pt tolerated sedation procedure well. AOx4 at D/C. at bedside.
== END 2023-03-07 08:47 | disposition home or self-care (01) ==
PROVIDERS: Emergency Medicine; Emergency Provider Emergency Medicine; PCP Internal Medicine
DX: I48.0 Paroxysmal atrial fibrillation (principal); Z79.899 Other long term (current) drug therapy; Z79.01 Long term (current) use of anticoagulants
CPT/HCPCS: 36415; 71045; 80053; 82550; 83690; 83735; 84484; 85025; 85610; 85730; 92960; 93005; 93010; 99152; 99285

== ENCOUNTER 2023-07-12 07:18 | Emergency (ER) | payer MEDICARE, SELFPAY ==
[2023-07-12] VITALS (30 sets, daily range): BP systolic 106–154; BP diastolic 57–93; PULSE 56–142; RESP 10–26; TEMP 36.4; O2SAT 96–100; BMI 23.5
[2023-07-12 07:38] LABS: Add Manual Diff / Slide Review NO; Basophils Absolute Auto 100 /uL (0-100); Basophils Percent Auto 0.8 % (0-2); Eosinophils Absolute Auto 200 /uL (0-450); Eosinophils Percent Auto 2.5 % (2-4); Hematocrit 48.1 % (41-53); Hemoglobin 16.5 g/dL (13.5-17.5); Lymphocytes Absolute Auto 2400 /uL (1100-4500); Lymphocytes Percent Auto 38.1 % (25-40); Mean Corpuscular HGB Conc 34.3 % (30-36); Mean Corpuscular Hemoglobin 33.1 PG (26-34); Mean Corpuscular Volume 96.4 fL (80-100); Monocytes Absolute Auto 700 /uL (0-900); Monocytes Percent Auto 10.7 % (3-14); Neutrophils Absolute Auto 3000 /uL (1500-7000); Neutrophils Percent Auto 47.9 % (50-75); Platelet Count 200 X10^3/uL (150-400); Red Blood Cell Count 4.99 X10^6/uL (4.5-5.9); Red Cell Distribution Width 13.5 % (11.6-14.8); White Blood Cell Count 6.2 X10^3/uL (4.5-11.0)
--- NOTE | 2023-07-12 07:50 | ED.ARRPALP ---
HPI - Arrhythmia/Palpitations General Chief Complaint: Arrhythmia/Palpitations Stated Complaint: Afib Time Seen by Provider: 07/12/23 07:22 Source: patient and family Mode of arrival: Ambulatory History of Present Illness HPI narrative: Patient is a 78-year-old male. History of paroxysmal atrial fibrillation. His last episode of AFib was 1 year ago. He states that he woke up in the middle of the night and had a normal heart rhythm but when he woke up this morning to go to the restroom he started to notice that his heart was beating fast and irregular. He was scheduled to have a cardiac catheterization tomorrow. He has been off of his Eliquis for the past couple days. He does have a prescription for metoprolol and he did take a full 25 mg extended release metoprolol this morning. He was feeling somewhat lightheaded but this is not new. No chest pain. No shortness of breath. No abdominal pain or nausea or vomiting. He has had multiple ablations and cardioversions in the past Related Data Home Medications Medication Instructions Recorded Confirmed hydrochlorothiazide 25 mg tablet 25 mg PO QAM 02/03/19 02/04/19 lisinopril 10 mg tablet 10 mg PO BEDTIME 02/03/19 02/04/19 simvastatin 20 mg tablet 20 mg PO BEDTIME 02/03/19 02/04/19 multivitamin 1 tab PO DAILY 02/04/19 02/04/19 vit C 250 mg-vit E 90 mg-zinc 40 1 cap PO BID 02/04/19 02/04/19 mg-copper 1 [id number] capsule (PreserVision AREDS-2) Allergies Allergy/AdvReac Type Severity Reaction Status Date / Time No Known Drug Allergies Allergy Verified 02/03/19 15:56 Review of Systems Review of Systems ROS Unobtainable: All systems reviewed & are unremarkable except as noted in HPI and below Patient History Medical History (Updated 07/12/23 @ 09:26 by Maikel Becker DO) High cholesterol Hypertension Atrial fibrillation Surgical History S/P ablation of atrial fibrillation Social History Smoking Status: Former smoker Smoking Status: Former smoker alcohol intake frequency: a few times a week Alcohol type: beer Substance Use Type: does not use Exam Initial Vital Signs Initial Vital Signs: Vital Signs Pulse Rate 142 H 07/12/23 07:23 Respiratory Rate 15 07/12/23 07:23 Blood Pressure 136/91 H 07/12/23 07:23 Pulse Oximetry 98 07/12/23 07:23 Const General: cooperative and No ill appearing HENMT Head: normal to inspection and normocephalic Resp Effort & Inspection: normal respiratory effort Auscultation: clear to auscultation bilaterally Cardio Rate: tachycardic Rhythm: abnormal rhythm GI Inspection: normal to inspection Skin General: no rashes or lesions noted Neuro General: patient alert, patient awake and moves all extremities Extrem General: No edema Procedures Cardioversion Consent Signed: Yes Indication: Atrial fibrillation Stability: Stable Number of attempts (shocks): 2 Joules used: 120 and 150 Cardiac rhythm post-cardioversion: Sinus rhythm Procedural Sedation Consent signed: Yes Time out performed: Yes Indication: cardioversion ASA Class: II Mallampati Airway Classification: Class II Preparation: hem marker applied, pulse oximeter, capnometry used, supplemental O2 applied, suction/airway equipment at bedside and IV secured Fentanyl: IV Fentanyl dose (mcg): 12 IV Propofol dose (mg): 50 Intraservice time/total sedation time (min): 15 ED Sedation Level: Moderate (Concious) Patient Tolerated Procedure: Well Complications: hypoventilation Interventions: Airway repositioned and Assist by BVM Course Orders Ordered: ED Orders 07/12/23 07:23 EKG-12 Lead Stat 07/12/23 07:29 Complete Blood Count AUTO DIFF Stat Comprehensive Metabolic Panel Stat Lipase Stat Magnesium Stat Troponin & CK Cardiac Panel Stat 07/12/23 08:28 EKG-12 Lead Stat Sodium Chloride (Normal Saline 0.9%) 1,000 mls @ 125 mls/hr IV CONT ZURDO Last Admin: 07/12/23 08:15 Dose: 125 mls/hr Documented By: RB Discontinued Medications Fentanyl (Fentanyl 100 Mcg/2 Ml Inj) 12.5 mcg IV NOW ONE Stop: 07/12/23 07:50 Last Admin: 07/12/23 08:15 Dose: 12.5 mcg Documented By: RB Propofol (Propofol 200 Mg/20 Ml Vial) 100 mg IV NOW ONE Stop: 07/12/23 07:50 Last Admin: 07/12/23 08:16 Dose: 50 mg Documented By: RB Vital Signs Vital signs: Vital Signs - 8 hr 07/12/23 07:23 07/12/23 07:23 07/12/23 07:25 Temperature Pulse Rate 142 H 120 H Respiratory Rate 15 18 Blood Pressure 136/91 H Pulse Oximetry 98 99 Oxygen Delivery Method Oxygen Flow Rate 07/12/23 07:27 07/12/23 07:30 07/12/23 07:32 Temperature 97.6 F Pulse Rate 112 H 96 H 95 H Respiratory Rate 18 20 15 Blood Pressure 136/91 H Pulse Oximetry 99 97 99 Oxygen Delivery Method Room Air Oxygen Flow Rate 07/12/23 07:32 07/12/23 07:35 07/12/23 07:35 Temperature Pulse Rate 95 H Respiratory Rate 15 Blood Pressure 144/93 H 135/83 Pulse Oximetry 100 Oxygen Delivery Method Oxygen Flow Rate 07/12/23 07:40 07/12/23 07:40 07/12/23 07:45 Temperature Pulse Rate 106 H Respiratory Rate 23 Blood Pressure 154/77 H 136/90 Pulse Oximetry 100 Oxygen Delivery Method Oxygen Flow Rate 07/12/23 07:45 07/12/23 07:50 07/12/23 07:50 Temperature Pulse Rate 96 H 100 H Respiratory Rate 18 14 Blood Pressure 122/80 Pulse Oximetry 100 100 Oxygen Delivery Method Oxygen Flow Rate 07/12/23 07:55 07/12/23 07:55 07/12/23 08:00 Temperature Pulse Rate 94 H Respiratory Rate 12 Blood Pressure 114/75 121/69 Pulse Oximetry 100 Oxygen Delivery Method Oxygen Flow Rate 07/12/23 08:00 07/12/23 08:05 07/12/23 08:05 Temperature Pulse Rate 93 H 93 H Respiratory Rate 18 16 Blood Pressure 126/73 Pulse Oximetry 100 100 Oxygen Delivery Method Oxygen Flow Rate 07/12/23 08:10 07/12/23 08:10 07/12/23 08:11 Temperature Pulse Rate 98 H Respiratory Rate 18 Blood Pressure 126/75 112/72 Pulse Oximetry 99 Oxygen Delivery Method Oxygen Flow Rate 07/12/23 08:11 07/12/23 08:15 07/12/23 08:15 Temperature Pulse Rate 93 H 99 H Respiratory Rate 20 18 Blood Pressure 122/89 Pulse Oximetry 99 97 Oxygen Delivery Method Room Air Oxygen Flow Rate 07/12/23 08:20 07/12/23 08:20 07/12/23 08:25 Temperature Pulse Rate 60 56 L Respiratory Rate 23 15 Blood Pressure 120/75 Pulse Oximetry 100 99 Oxygen Delivery Method Room Air Oxygen Flow Rate 07/12/23 08:25 07/12/23 08:30 07/12/23 08:30 Temperature Pulse Rate 56 L Respiratory Rate 20 Blood Pressure 117/73 121/66 Pulse Oximetry 98 Oxygen Delivery Method Room Air Oxygen Flow Rate 07/12/23 08:35 07/12/23 08:35 07/12/23 08:40 Temperature Pulse Rate 58 L 57 L Respiratory Rate 18 16 Blood Pressure 108/63 Pulse Oximetry 97 Oxygen Delivery Method Room Air Oxygen Flow Rate 07/12/23 08:40 07/12/23 08:40 07/12/23 08:45 Temperature Pulse Rate 58 L 58 L Respiratory Rate 22 17 Blood Pressure 106/60 Pulse Oximetry 97 96 Oxygen Delivery Method Room Air Oxygen Flow Rate 1 07/12/23 08:45 07/12/23 08:50 07/12/23 08:50 Temperature Pulse Rate 59 L Respiratory Rate 17 Blood Pressure 115/65 114/67 Pulse Oximetry 97 Oxygen Delivery Method Room Air Oxygen Flow Rate 07/12/23 08:55 07/12/23 08:55 Temperature Pulse Rate 57 L Respiratory Rate 13 Blood Pressure 113/68 Pulse Oximetry 98 Oxygen Delivery Method Room Air Oxygen Flow Rate MDM - Arrhythmia/Palpitations Lab Data Attestation: I reviewed the patient's lab results. 07/12/23 07:29 07/12/23 07:29 Labs: Lab Results 07/12/23 Range/Units 07:29 WBC 6.2 (4.5-11.0) X10^3/uL RBC 4.99 (4.5-5.9) X10^6/uL Hgb 16.5 (13.5-17.5) g/dL Hct 48.1 (41-53) % MCV 96.4 (80-100) fL MCH 33.1 (26-34) PG MCHC 34.3 (30-36) % RDW 13.5 (11.6-14.8) % Plt Count 200 (150-400) X10^3/uL Neut % (Auto) 47.9 L (50-75) % Lymph % (Auto) 38.1 (25-40) % Levy % (Auto) 10.7 (3-14) % Eos % (Auto) 2.5 (2-4) % Baso % (Auto) 0.8 (0-2) % Neut # (Auto) 3000 (0005-7102) /uL Lymph # (Auto) 2400 (1177-6856) /uL Levy # (Auto) 700 (0-900) /uL Eos # (Auto) 200 (0-450) /uL Baso # (Auto) 100 (0-100) /uL Sodium 140 (137-145) mmol/L Potassium 3.8 (3.4-5.1) mmol/L Chloride 105 (98-107) mmol/L Carbon Dioxide 30 (22-32) mmol/L BUN 15 (9-20) mg/dL Creatinine 0.83 (0.66-1.25) mg/dL Estimated GFR > 60 (>60) mL/min BUN/Creatinine Ratio 18.1 (6-22) Glucose 95 (80-110) mg/dL Calcium 9.3 (8.4-10.2) mg/dL Magnesium 2.2 (1.6-2.3) mg/dL Total Bilirubin 1.1 (0.2-1.3) mg/dL AST 30 (17-59) IU/L ALT 27 (<50) IU/L Alkaline Phosphatase 78 (38-126) U/L Total Creatine Kinase 85 (55-170) U/L Troponin I < 0.012 (0.01-0.034) ng/mL Total Protein 7.6 (6.3-8.2) g/dL Albumin 4.6 (3.5-5.0) g/dL Globulin 3.0 (1.7-4.1) g/dL Albumin/Globulin Ratio 1.5 (1.0-2.8) Lipase 140 (23-300) U/L ECG Data Attestation: I personally reviewed and interpreted this ECG as follows: Interpretation: Atrial fibrillation Ventricular rate 97 Normal axis One PVC Nonspecific ST T wave changes Post cardioversion Sinus bradycardia Ventricular rate of 57 First-degree AV block NH interval 2-6 milliseconds Left axis deviation No ST T wave changes MDM Narrative Medical decision making narrative: Patient arrived less than 12 hours after the onset of his atrial fibrillation. He has a history of AFib. He took a metoprolol prior to arrival. What pressure was unremarkable. He has been off of his Eliquis for the past couple days because he is supposed to have a cardiac catheterization tomorrow. He does fall within the window of having a cardioversion. We discussed the risks and benefits of this. Patient opted for the cardioversion. He was cardioverted successfully here in the ER. Will have him keep his appointment tomorrow with his optical instrument assembler. He was given return precautions. He expressed understanding and agreement. Discharge Plan Departure Patient Disposition: Home Clinical Impression: Atrial fibrillation Instructions: DI for Atrial Fibrillation Activity Restrictions/Additional Instructions: Keep your scheduled appointment with your optical instrument assembler tomorrow. Check your heart rate at noon today when you normally take your metoprolol. If it is in the 50s or 60s skip your noon dose of metoprolol. Return to the emergency department for new or worsening symptoms Prescriptions: No Action simvastatin 20 mg tablet 20 mg PO BEDTIME lisinopril 10 mg tablet 10 mg PO BEDTIME hydrochlorothiazide 25 mg tablet 25 mg PO QAM multivitamin Tablet 1 tab PO DAILY PreserVision AREDS-2 [id number]-mg Capsule 1 cap PO BID Referrals: Zhen Jim DO [Primary Care Provider] - Stand Alone Forms: Patient Portal/API
[2023-07-12 07:51] LABS: Alanine Aminotransferase 27 IU/L (<50); Albumin 4.6 g/dL (3.5-5.0); Albumin Globulin Ratio 1.5 (1.0-2.8); Alkaline Phosphatase 78 U/L (38-126); Aspartate Aminotransferase 30 IU/L (17-59); BUN Creatinine Ratio 18.1 (6-22); Bilirubin Total 1.1 mg/dL (0.2-1.3); Blood Urea Nitrogen 15 mg/dL (9-20); Calcium 9.3 mg/dL (8.4-10.2); Carbon Dioxide 30 mmol/L (22-32); Chloride 105 mmol/L (98-107); Creatine Kinase 85 U/L (55-170); Estimated Glomerular Filt Rate > 60 mL/min (>60); Glucose 95 mg/dL (80-110); HEMOLYSIS < 15 (0-50); Lipase 140 U/L (23-300); Magnesium 2.2 mg/dL (1.6-2.3); Potassium 3.8 mmol/L (3.4-5.1); Sodium 140 mmol/L (137-145); Total Protein 7.6 g/dL (6.3-8.2)
[2023-07-12 08:02] LABS: Troponin I < 0.012 ng/mL (0.01-0.034)
[2023-07-12] MEDS: SODIUM CHLORIDE 0.9% 1,000 ML 125 ML IV (08:15)
[2023-07-12] MEDS: fentaNYL 100 MCG/2 ML INJ 12.5 MCG IV (08:15)
[2023-07-12] MEDS: propofoL 200 MG/20 ML VIAL 100 MG IV (08:16)
== END 2023-07-12 09:37 | disposition home or self-care (01) ==
PROVIDERS: Emergency Provider Emergency Medicine; PCP Internal Medicine
DX: I48.91 Unspecified atrial fibrillation (principal); R00.1 Bradycardia, unspecified; I44.0 Atrioventricular block, first degree; Z79.899 Other long term (current) drug therapy
CPT/HCPCS: 36415; 80053; 82550; 83690; 83735; 84484; 85025; 92960; 93005; 93010; 96360; 99152; 99285; J2704; J3010

== ENCOUNTER 2023-07-26 01:48 | Emergency (ER) | payer MEDICARE, SELFPAY ==
[2023-07-26] VITALS (22 sets, daily range): BP systolic 113–161; BP diastolic 65–87; PULSE 62–152; RESP 12–26; TEMP 36.3; O2SAT 97–100; BMI 23.7
--- NOTE | 2023-07-26 02:11 | ED_ITS ---
HPI - Arrhythmia/Palpitations General Chief Complaint: Arrhythmia/Palpitations Stated Complaint: Afib/Dizzy Time Seen by Provider: 07/26/23 01:50 Source: patient and EMS Mode of arrival: EMS History of Present Illness HPI narrative: 78-year-old male with history of atrial fibrillation on Eliquis presents by EMS from home for atrial fibrillation. Patient states he went to bed in his usual state of health and woke up in the middle of the night with his heart racing. He states he is usually in sinus rhythm and takes 12.5 metoprolol daily. He took an additional 12.5 mg at home prior to arrival as he was told to do this if he goes into atrial fibrillation, however this did not improve his heart rate and he called 911. Patient states that he recently saw his geotechnical engineering technician about getting an ablation for AFib. He is awaiting insurance approval for this procedure. He reports compliance with his Eliquis and denies missed doses. Related Data Home Medications Medication Instructions Recorded Confirmed hydrochlorothiazide 25 mg tablet 25 mg PO QAM 02/03/19 02/04/19 lisinopril 10 mg tablet 10 mg PO BEDTIME 02/03/19 02/04/19 simvastatin 20 mg tablet 20 mg PO BEDTIME 02/03/19 02/04/19 multivitamin 1 tab PO DAILY 02/04/19 02/04/19 vit C 250 mg-vit E 90 mg-zinc 40 1 cap PO BID 02/04/19 02/04/19 mg-copper 1 [id number] capsule (PreserVision AREDS-2) Allergies Allergy/AdvReac Type Severity Reaction Status Date / Time No Known Drug Allergies Allergy Verified 02/03/19 15:56 Review of Systems Review of Systems Narrative: See HPI Patient History Medical History High cholesterol Hypertension Atrial fibrillation Surgical History S/P ablation of atrial fibrillation Social History Smoking Status: Former smoker Smoking Status: Former smoker alcohol intake frequency: a few times a week Alcohol type: beer Substance Use Type: does not use Exam Initial Vital Signs Initial Vital Signs: Vital Signs Temperature 97.3 F L 07/26/23 01:55 Pulse Rate 122 H 07/26/23 01:55 Respiratory Rate 16 07/26/23 01:55 Blood Pressure 144/84 H 07/26/23 01:55 Pulse Oximetry 100 07/26/23 01:55 Oxygen Delivery Method Room Air 07/26/23 01:55 Const: Awake, alert, no acute distress, nontoxic appearing Cardiac: Tachycardia, irregularly irregular RESP: unlabored, clear bilaterally, no wheezing GI: Soft, nontender, nondistended, no rebound, no guarding MSK: Atraumatic, full range of motion, pulses equal Skin: Warm, Dry, intact, no rashes Neuro: AO x3, CN II-XII grossly intact, moves all extremities Procedures Cardioversion Consent Signed: Yes Indication: Atrial fibrillation with RVR Stability: Stable Number of attempts (shocks): 3 Joules used: 150 and 200 Cardiac rhythm post-cardioversion: Normal sinus rhythm Procedural Sedation Consent signed: Yes Time out performed: Yes Indication: cardioversion ASA Class: II Mallampati Airway Classification: Class II Preparation: case monitor applied, pulse oximeter, capnometry used, supplemental O2 applied, suction/airway equipment at bedside and IV secured IV Propofol dose (mg): 60 Intraservice time/total sedation time (min): 10 ED Sedation Level: Moderate (Concious) Patient Tolerated Procedure: Well Complications: Respiratory Depression Requiring Ambulance Assistance Interventions: Airway repositioned and Assist by BVM Course Orders Ordered: ED Orders 07/26/23 EKG-12 Lead Routine EKG-12 Lead Routine 07/26/23 02:00 CBC Auto Diff [Complete Blood Count AUTO DIFF] Stat CMP [Comprehensive Metabolic Panel] Stat MAG [Magnesium] Stat Discontinued Medications Sodium Chloride (Normal Saline 0.9%) 1,000 mls @ 1,000 mls/hr IV BOLUS ONE Stop: 07/26/23 03:08 Last Infusion: 07/26/23 03:15 Dose: Infused Documented By: Admin: 07/26/23 02:30 Dose: 1,000 mls/hr Documented By: JOANN Metoprolol Tartrate (Metoprolol Tartrate 5 Mg/5 Ml Inj) 5 mg IV NOW ONE Stop: 07/26/23 02:37 Last Admin: 07/26/23 02:40 Dose: 5 mg Documented By: JOANN Propofol (Propofol 200 Mg/20 Ml Vial) 80 mg 1 mg/kg (80 mg) IV NOW ONE Stop: 07/26/23 02:11 Last Admin: 07/26/23 02:31 Dose: 60 mg Documented By: JOANN Vital Signs Vital signs: Vital Signs - 8 hr 07/26/23 01:55 07/26/23 02:00 07/26/23 02:02 Temperature 97.3 F L Pulse Rate 122 H 113 H 116 H Respiratory Rate 16 23 24 Blood Pressure 144/84 H Pulse Oximetry 100 100 98 Oxygen Delivery Method Room Air Room Air 07/26/23 02:02 07/26/23 02:06 07/26/23 02:06 Temperature Pulse Rate 152 H Respiratory Rate 23 Blood Pressure 125/83 142/87 H Pulse Oximetry 100 Oxygen Delivery Method Room Air 07/26/23 02:46 Temperature Pulse Rate 64 Respiratory Rate 13 Blood Pressure Pulse Oximetry Oxygen Delivery Method MDM - Arrhythmia/Palpitations Lab Data 07/26/23 02:00 07/26/23 02:00 Labs: Lab Results 07/26/23 Range/Units 02:00 WBC 8.0 (4.5-11.0) X10^3/uL RBC 5.12 (4.5-5.9) X10^6/uL Hgb 16.7 (13.5-17.5) g/dL Hct 49.2 (41-53) % MCV 96.0 (80-100) fL MCH 32.6 (26-34) PG MCHC 34.0 (30-36) % RDW 13.6 (11.6-14.8) % Plt Count 203 (150-400) X10^3/uL Neut % (Auto) 47.4 L (50-75) % Lymph % (Auto) 38.6 (25-40) % [place] % (Auto) 11.2 (3-14) % Eos % (Auto) 1.6 L (2-4) % Baso % (Auto) 1.2 (0-2) % Neut # (Auto) 3800 (6207-2405) /uL Lymph # (Auto) 3100 (3965-7599) /uL [place] # (Auto) 900 (0-900) /uL Eos # (Auto) 100 (0-450) /uL Baso # (Auto) 100 (0-100) /uL Sodium 139 (137-145) mmol/L Potassium 4.1 (3.4-5.1) mmol/L Chloride 107 (98-107) mmol/L Carbon Dioxide 24 (22-32) mmol/L BUN 24 H (9-20) mg/dL Creatinine 0.85 (0.66-1.25) mg/dL Estimated GFR > 60 (>60) mL/min BUN/Creatinine Ratio 28.2 H (6-22) Glucose 94 (80-110) mg/dL Calcium 9.8 (8.4-10.2) mg/dL Magnesium 2.2 (1.6-2.3) mg/dL Total Bilirubin 1.2 (0.2-1.3) mg/dL AST 35 (17-59) IU/L ALT 31 (<50) IU/L Alkaline Phosphatase 97 (38-126) U/L Total Protein 7.7 (6.3-8.2) g/dL Albumin 4.6 (3.5-5.0) g/dL Globulin 3.1 (1.7-4.1) g/dL Albumin/Globulin Ratio 1.5 (1.0-2.8) ECG Data Interpretation: EKG 1: Atrial fibrillation with RVR at rate of 113 beats per minute. Normal axis, no ST T wave changes EKG 2: Normal sinus rhythm at 66 beats per minute. First-degree AV block present. No ST T wave changes MDM Narrative Medical decision making narrative: Breakthrough atrial fibrillation. Patient was normally in sinus rhythm. Patient reports that he has had 2 come to the emergency department multiple times for cardioversion. He was awaiting for insurance approval to undergo ablation. States that he feels nauseous and unwell generally due to being in atrial fibrillation. Laboratory work is reviewed. Electrolytes within normal limits, magnesium 2.2, potassium 4.1. EKG shows no concerning ST T wave changes. Patient consented to cardioversion. Unresponsive after 1st synchronized cardioversion at 150 joules. Second attempt at 200 joules was briefly successful, however patient quickly went back into atrial fibrillation with RVR. After 3rd cardioversion attempt at 200 joules patient converted to normal sinus rhythm and remained there. He was given a dose of metoprolol in the emergency department to help keep him in sinus rhythm. Lab findings discussed with patient and at bedside. He was currently only on 12.5 mg of metoprolol daily. He states that his resting heart rate is approximately 65 beats per minute. He was encouraged to increase his metoprolol to 25 mg daily as long as his heart rate and blood pressure would allow. If he becomes too symptomatic than he was advised to decrease his metoprolol back to 12.5 mg, however increasing 25 mg may help prevent going back into atrial fibrillation. Cardiology follow up advised. Critical Care Time Critical Care Time Critical Care Time: Yes Total Critical Care Time: 43 Attestation: Atrial fibrillation with RVR requiring electric cardioversion. Discharge Plan Departure Patient Disposition: Home Clinical Impression: Atrial fibrillation with RVR Instructions: DI for Atrial Fibrillation Activity Restrictions/Additional Instructions: We were able to successfully cardiovert you after 3 attempts. You were currently in sinus rhythm. I do recommend attempting to increase your metoprolol to 25 mg daily from 12.5 mg daily. If you notice that your heart rate in your blood pressure are going to low and you feel dizzy, lightheaded, or pass out, then you will need to decrease this dose back to 12.5 mg, however hopefully increasing this dose will prevent you from going back into atrial fibrillation while you await ablation. Follow up with your geotechnical engineering technician. Prescriptions: No Action simvastatin 20 mg tablet 20 mg PO BEDTIME lisinopril 10 mg tablet 10 mg PO BEDTIME hydrochlorothiazide 25 mg tablet 25 mg PO QAM multivitamin Tablet 1 tab PO DAILY PreserVision AREDS-2 [id number] [id number]-[id number]-mg Capsule 1 cap PO BID Referrals: Zhen Jim DO [Primary Care Provider] - Stand Alone Forms: Patient Portal/API
[2023-07-26 02:20] LABS: Add Manual Diff / Slide Review NO; Basophils Absolute Auto 100 /uL (0-100); Basophils Percent Auto 1.2 % (0-2); Eosinophils Absolute Auto 100 /uL (0-450); Eosinophils Percent Auto 1.6 % (2-4); Hematocrit 49.2 % (41-53); Hemoglobin 16.7 g/dL (13.5-17.5); Lymphocytes Absolute Auto 3100 /uL (1100-4500); Lymphocytes Percent Auto 38.6 % (25-40); Mean Corpuscular Hemoglobin 32.6 PG (26-34); Monocytes Absolute Auto 900 /uL (0-900); Monocytes Percent Auto 11.2 % (3-14); Neutrophils Absolute Auto 3800 /uL (1500-7000); Neutrophils Percent Auto 47.4 % (50-75); Platelet Count 203 X10^3/uL (150-400); Red Blood Cell Count 5.12 X10^6/uL (4.5-5.9); Red Cell Distribution Width 13.6 % (11.6-14.8)
[2023-07-26 02:25] LABS: Alanine Aminotransferase 31 IU/L (<50); Albumin 4.6 g/dL (3.5-5.0); Albumin Globulin Ratio 1.5 (1.0-2.8); Alkaline Phosphatase 97 U/L (38-126); Aspartate Aminotransferase 35 IU/L (17-59); BUN Creatinine Ratio 28.2 (6-22); Bilirubin Total 1.2 mg/dL (0.2-1.3); Blood Urea Nitrogen 24 mg/dL (9-20); Calcium 9.8 mg/dL (8.4-10.2); Carbon Dioxide 24 mmol/L (22-32); Chloride 107 mmol/L (98-107); Estimated Glomerular Filt Rate > 60 mL/min (>60); Globulin 3.1 g/dL (1.7-4.1); Glucose 94 mg/dL (80-110); HEMOLYSIS 27 (0-50); Magnesium 2.2 mg/dL (1.6-2.3); Potassium 4.1 mmol/L (3.4-5.1); Sodium 139 mmol/L (137-145); Total Protein 7.7 g/dL (6.3-8.2)
[2023-07-26] MEDS: SODIUM CHLORIDE 0.9% 1,000 ML 1000 ML IV (02:30)
[2023-07-26] MEDS: propofoL 200 MG/20 ML VIAL 80 MG IV (02:31)
[2023-07-26] MEDS: METOPROLOL TARTRATE 5 MG/5 ML INJ IV (02:40)
== END 2023-07-26 03:47 | disposition home or self-care (01) ==
PROVIDERS: Emergency Provider Emergency Medicine; PCP Internal Medicine
DX: I48.91 Unspecified atrial fibrillation (principal)
CPT/HCPCS: 36415; 80053; 83735; 85025; 92960; 93005; 96374; 99152; 99284; J2704

== ENCOUNTER 2023-08-06 20:19 | Emergency (ER) | payer MEDICARE, SELFPAY ==
[2023-08-06 20:33] VITALS: BP 177/103; PULSE 106; RESP 17; TEMP 36.9; O2SAT 97; BMI 23.7
--- NOTE | 2023-08-06 20:47 | ED_ITS ---
HPI - Arrhythmia/Palpitations General Chief Complaint: Arrhythmia/Palpitations Stated Complaint: states heart arrythmia Time Seen by Provider: 08/06/23 20:27 Source: patient Mode of arrival: Ambulatory History of Present Illness HPI narrative: 78-year-old male with history of atrial fibrillation on Eliquis and metoprolol presents for recurrence of atrial fibrillation this afternoon. Patient reports compliance with all of his medications and his blood thinners. Has an ablation scheduled in 11 days with [facility]. Denies chest pain, shortness of breath, other complaints. Related Data Home Medications Medication Instructions Recorded Confirmed hydrochlorothiazide 25 mg tablet 25 mg PO QAM 02/03/19 02/04/19 lisinopril 10 mg tablet 10 mg PO BEDTIME 02/03/19 02/04/19 simvastatin 20 mg tablet 20 mg PO BEDTIME 02/03/19 02/04/19 multivitamin 1 tab PO DAILY 02/04/19 02/04/19 vit C 250 mg-vit E 90 mg-zinc 40 1 cap PO BID 02/04/19 02/04/19 mg-copper 1 [id number]-[id number] capsule (PreserVision AREDS-2) Allergies Allergy/AdvReac Type Severity Reaction Status Date / Time No Known Drug Allergies Allergy Verified 02/03/19 15:56 Patient History Medical History High cholesterol Hypertension Atrial fibrillation Surgical History S/P ablation of atrial fibrillation Social History Smoking Status: Former smoker Smoking Status: Former smoker alcohol intake frequency: a few times a week Alcohol type: beer Substance Use Type: does not use Exam Initial Vital Signs Initial Vital Signs: Vital Signs Temperature 98.4 F 08/06/23 20:33 Pulse Rate 106 H 08/06/23 20:33 Respiratory Rate 17 08/06/23 20:33 Blood Pressure 177/103 H 08/06/23 20:33 Pulse Oximetry 97 08/06/23 20:33 Oxygen Delivery Method Room Air 08/06/23 20:33 Const: Awake, alert, no acute distress, nontoxic appearing Cardiac: Tachycardia, irregularly irregular rhythm RESP: unlabored, clear bilaterally, no wheezing Skin: Warm, Dry, intact, no rashes Neuro: AO x3, CN II-XII grossly intact, moves all extremities Procedures Cardioversion Consent Signed: Yes Indication: Atrial fibrillation Stability: Stable Number of attempts (shocks): 1 Joules used: 200 Cardiac rhythm post-cardioversion: Normal sinus rhythm Procedural Sedation Consent signed: Yes Time out performed: Yes Indication: cardioversion ASA Class: II Mallampati Airway Classification: Class I Preparation: bus driver/monitor applied, pulse oximeter, capnometry used, supplemental O2 applied, suction/airway equipment at bedside and IV secured IV Propofol dose (mg): 60 ED Sedation Level: Moderate (Concious) Patient Tolerated Procedure: Well and No complications Complications: none Course Orders Ordered: ED Orders 08/06/23 20:34 CBC Auto Diff [Complete Blood Count AUTO DIFF] Stat CMP [Comprehensive Metabolic Panel] Stat MAG [Magnesium] Stat 08/06/23 21:58 EKG-12 Lead Stat Discontinued Medications Propofol (Propofol 200 Mg/20 Ml Vial) 80 mg 1 mg/kg (80 mg) IV NOW ONE Stop: 08/06/23 20:59 Last Admin: 08/06/23 21:21 Dose: 80 mg Documented By: VIKAS Vital Signs Vital signs: Vital Signs - 8 hr 08/06/23 20:33 08/06/23 21:24 08/06/23 21:45 Temperature 98.4 F Pulse Rate 106 H 106 H 105 H Respiratory Rate 17 Blood Pressure 177/103 H 137/87 157/95 H Pulse Oximetry 97 97 98 Oxygen Delivery Method Room Air Room Air 08/06/23 22:05 08/06/23 22:33 Temperature Pulse Rate 59 L 62 Respiratory Rate 16 18 Blood Pressure 137/78 148/83 H Pulse Oximetry 99 98 Oxygen Delivery Method Room Air Room Air MDM - Arrhythmia/Palpitations Differential Diagnosis Differential diagnosis: Likely palpitations, anxiety and artial fibrillation Lab Data 08/06/23 20:34 08/06/23 20:34 Labs: Lab Results 08/06/23 Range/Units 20:34 WBC 6.2 (4.5-11.0) X10^3/uL RBC 4.89 (4.5-5.9) X10^6/uL Hgb 16.5 (13.5-17.5) g/dL Hct 48.1 (41-53) % MCV 98.2 (80-100) fL MCH 33.7 (26-34) PG MCHC 34.3 (30-36) % RDW 13.7 (11.6-14.8) % Plt Count 204 (150-400) X10^3/uL Neut % (Auto) 42.2 L (50-75) % Lymph % (Auto) 41.1 H (25-40) % [place] % (Auto) 12.4 (3-14) % Eos % (Auto) 3.1 (2-4) % Baso % (Auto) 1.2 (0-2) % Neut # (Auto) 2600 (8052-8915) /uL Lymph # (Auto) 2500 (8590-1339) /uL [place] # (Auto) 800 (0-900) /uL Eos # (Auto) 200 (0-450) /uL Baso # (Auto) 100 (0-100) /uL Sodium 140 (137-145) mmol/L Potassium 4.0 (3.4-5.1) mmol/L Chloride 107 (98-107) mmol/L Carbon Dioxide 29 (22-32) mmol/L BUN 19 (9-20) mg/dL Creatinine 0.88 (0.66-1.25) mg/dL Estimated GFR > 60 (>60) mL/min BUN/Creatinine Ratio 21.6 (6-22) Glucose 73 L (80-110) mg/dL Calcium 9.4 (8.4-10.2) mg/dL Magnesium 2.3 (1.6-2.3) mg/dL Total Bilirubin 0.9 (0.2-1.3) mg/dL AST 34 (17-59) IU/L ALT 29 (<50) IU/L Alkaline Phosphatase 73 (38-126) U/L Total Protein 7.7 (6.3-8.2) g/dL Albumin 4.5 (3.5-5.0) g/dL Globulin 3.2 (1.7-4.1) g/dL Albumin/Globulin Ratio 1.4 (1.0-2.8) ECG Data Interpretation: EKG 1: Atrial flutter 2-1 conduction at 105 beats per minute. No ST T wave changes, no STEMI EKG 2: Sinus rhythm 60 beats per minute, first-degree AV block, no ST T wave changes [facility] Narrative Medical decision making narrative: Patient with recurrent atrial fibrillation, has been compliant with his metoprolol and Eliquis. He was scheduled for an ablation in just [address] Chapin. Call placed to on-call technical applications specialist at [facility] for recommendations, patient has been to this emergency department numerous times. Discussed case with Dr. Maged Jones of on-call Cardiology, who recommended electrical cardioversion and no medication changes, and hopefully patient will not need to be cardioverted again prior to his ablation on the . Patient has successfully cardioverted with 200 joule synchronized cardioversion. (last time patient required several 150J cardioversion attempts prior to successful 200J attempt). Subsequent rhythm normal sinus rhythm at 60 beats per minute. Patient counseled to continue all of his medications as prescribed. Discharged home in stable condition. Discharge Plan Departure Patient Disposition: Home Clinical Impression: Atrial fibrillation with RVR Instructions: DI for Atrial Fibrillation Activity Restrictions/Additional Instructions: Cardiology recommends continuing your medications as prescribed. Follow up as scheduled for your ablation. Prescriptions: No Action simvastatin 20 mg tablet 20 mg PO BEDTIME lisinopril 10 mg tablet 10 mg PO BEDTIME hydrochlorothiazide 25 mg tablet 25 mg PO QAM multivitamin Tablet 1 tab PO DAILY PreserVision AREDS-2 [id number] [id number]-mrmv-vj-mg Capsule 1 cap PO BID Referrals: Zhne Jim DO [Primary Care Provider] - Stand Alone Forms: Patient Portal/API
[2023-08-06 21:19] LABS: Add Manual Diff / Slide Review NO; Basophils Absolute Auto 100 /uL (0-100); Basophils Percent Auto 1.2 % (0-2); Eosinophils Absolute Auto 200 /uL (0-450); Eosinophils Percent Auto 3.1 % (2-4); Hematocrit 48.1 % (41-53); Hemoglobin 16.5 g/dL (13.5-17.5); Lymphocytes Absolute Auto 2500 /uL (1100-4500); Lymphocytes Percent Auto 41.1 % (25-40); Mean Corpuscular HGB Conc 34.3 % (30-36); Mean Corpuscular Hemoglobin 33.7 PG (26-34); Mean Corpuscular Volume 98.2 fL (80-100); Monocytes Absolute Auto 800 /uL (0-900); Monocytes Percent Auto 12.4 % (3-14); Neutrophils Absolute Auto 2600 /uL (1500-7000); Neutrophils Percent Auto 42.2 % (50-75); Platelet Count 204 X10^3/uL (150-400); Red Blood Cell Count 4.89 X10^6/uL (4.5-5.9); Red Cell Distribution Width 13.7 % (11.6-14.8); White Blood Cell Count 6.2 X10^3/uL (4.5-11.0)
[2023-08-06] MEDS: propofoL 200 MG/20 ML VIAL 80 MG IV (21:21)
[2023-08-06 21:24] VITALS: BP 137/87; PULSE 106; O2SAT 97
[2023-08-06 21:30] LABS: Alanine Aminotransferase 29 IU/L (<50); Albumin 4.5 g/dL (3.5-5.0); Albumin Globulin Ratio 1.4 (1.0-2.8); BUN Creatinine Ratio 21.6 (6-22); Bilirubin Total 0.9 mg/dL (0.2-1.3); Blood Urea Nitrogen 19 mg/dL (9-20); Calcium 9.4 mg/dL (8.4-10.2); Carbon Dioxide 29 mmol/L (22-32); Chloride 107 mmol/L (98-107); Estimated Glomerular Filt Rate > 60 mL/min (>60); Globulin 3.2 g/dL (1.7-4.1); Glucose 73 mg/dL (80-110); Magnesium 2.3 mg/dL (1.6-2.3); Sodium 140 mmol/L (137-145); Total Protein 7.7 g/dL (6.3-8.2)
[2023-08-06 21:36] LABS: HEMOLYSIS 51 (0-50)
[2023-08-06 21:37] LABS: Alkaline Phosphatase 73 U/L (38-126); Aspartate Aminotransferase 34 IU/L (17-59)
[2023-08-06 21:45] VITALS: BP 157/95; PULSE 105; O2SAT 98
[2023-08-06 22:05] VITALS: BP 137/78; PULSE 59; RESP 16; O2SAT 99
--- NOTE | 2023-08-06 22:21 | PC.NURSE ---
dr. perea pushed 66 of propofol and this RN wasted the residual 134
[2023-08-06 22:33] VITALS: BP 148/83; PULSE 62; RESP 18; O2SAT 98
== END 2023-08-06 22:37 | disposition home or self-care (01) ==
PROVIDERS: Emergency Provider Emergency Medicine; PCP Internal Medicine
DX: I48.20 Chronic atrial fibrillation, unspecified (principal); I44.0 Atrioventricular block, first degree; Z79.01 Long term (current) use of anticoagulants
CPT/HCPCS: 36415; 80053; 83735; 85025; 92960; 93005; 93010; 99152; 99284; 99285; J2704

== ENCOUNTER 2023-12-06 12:42 | Emergency (ER) | payer MEDICARE, SELFPAY ==
[2023-12-06] VITALS (12 sets, daily range): BP systolic 119–178; BP diastolic 70–97; PULSE 70–88; RESP 18–23; TEMP 36.3; O2SAT 96–100; BMI 23.1
[2023-12-06 13:11] LABS: Urine Volume 10mL (spun)
[2023-12-06 13:16] LABS: Amorphous Sediment Urine 1+; Bacteria Urine Few (2-10); Culture Indicated Urine Cult Not Indicated; RBC Urine 30-100/HPF (0-5/HPF); Squamous Epithelial Cell Urine None Seen (0-5/HPF); WBC Urine 0-1/HPF (0-5/HPF)
[2023-12-06] MEDS: ONDANSETRON 4 MG/2 ML INJ IV (13:29)
--- NOTE | 2023-12-06 13:35 | PC.NURSE ---
Pt reports intense, intermittent, left flank pain that wraps around to his lower left abdomen, N/V that began around 11pm last night. Pt also reports increased blood in toilet from my hemorrhoids and blood in my urine. Pt denies chest pain/denies dizziness and denies SOB. Pt has hx of Afib/Aflutter and ablations.
[2023-12-06 13:38] LABS: Add Manual Diff / Slide Review NO; Basophils Absolute Auto 200 /uL (0-100); Basophils Percent Auto 1.7 % (0-2); Eosinophils Absolute Auto 100 /uL (0-450); Eosinophils Percent Auto 1.2 % (2-4); Hematocrit 45.7 % (41-53); Hemoglobin 15.4 g/dL (13.5-17.5); Lymphocytes Absolute Auto 1900 /uL (1100-4500); Lymphocytes Percent Auto 17.4 % (25-40); Mean Corpuscular HGB Conc 33.8 % (30-36); Mean Corpuscular Hemoglobin 32.5 PG (26-34); Mean Corpuscular Volume 96.1 fL (80-100); Monocytes Absolute Auto 1200 /uL (0-900); Monocytes Percent Auto 11.2 % (3-14); Neutrophils Absolute Auto 7600 /uL (1500-7000); Neutrophils Percent Auto 68.5 % (50-75); Platelet Count 215 X10^3/uL (150-400); Red Blood Cell Count 4.75 X10^6/uL (4.5-5.9); Red Cell Distribution Width 13.6 % (11.6-14.8); White Blood Cell Count 11.1 X10^3/uL (4.5-11.0)
--- NOTE | 2023-12-06 13:38 | DI.CT.S_ITS ---
PROCEDURE: CT ABDOMEN PELVIS WO CON INDICATIONS: flank pain TECHNIQUE: Axial sections were acquired from the lung bases to the pubic symphysis. Coronal and sagittal reformats were performed. For radiation dose reduction, the following was used: automated exposure control, adjustment of mA and/or kV according to patient size. COMPARISON: None. FINDINGS: Image quality: Diagnostic. Lower Chest: Small hiatal hernia. URINARY: Right Kidney: Punctate nonobstructing nephrolithiasis. No hydronephrosis. Right Ureter: No hydroureter. Left Kidney: Obstructing 3-4 mm stone in the proximal left ureter, resulting in renal edema, moderate hydronephrosis, perinephric fat stranding. Left Ureter: Moderate hydroureter. Bladder: Normal wall thickness. No stones. ABDOMEN: Liver: No contour-deforming solid mass. Gallbladder: No radiopaque gallstones or wall thickening. Biliary ducts: No biliary dilation. Pancreas: No ductal dilation. Spleen: Size is within normal limits. Adrenal Glands: No adrenal nodules. Stomach and Bowel: Normal colonic caliber, without significant wall thickening. Colonic diverticulosis without evidence of diverticulitis. Peritoneum: No abnormal intraperitoneal fluid. No free air. Ventral Wall: Small umbilical hernia containing fat. Abdominal Nodes: No enlarged retroperitoneal or mesenteric lymph nodes. Vessels: Aorta and inferior vena cava are normal in size. PELVIS: Pelvic Organs: Unremarkable. Pelvic Nodes: Unremarkable. Miscellaneous: No inguinal hernias are seen. Bones: Unremarkable. IMPRESSION: Obstructing 3-4 mm stone in the proximal left ureter, resulting in moderate hydronephrosis, renal edema and perinephric fat stranding. Dictated by: Hamilton Staples M.D. on 12/06/2023 at 14:47 Approved by: Hamilton Staples M.D. on 12/06/2023 at 14:52
[2023-12-06 13:46] LABS: Alanine Aminotransferase 25 IU/L (<50); Albumin 4.2 g/dL (3.5-5.0); Albumin Globulin Ratio 1.2 (1.0-2.8); Alkaline Phosphatase 79 U/L (38-126); Aspartate Aminotransferase 44 IU/L (17-59); BUN Creatinine Ratio 24.7 (6-22); Blood Urea Nitrogen 23 mg/dL (9-20); Calcium 9.9 mg/dL (8.4-10.2); Carbon Dioxide 28 mmol/L (22-32); Chloride 103 mmol/L (98-107); Estimated Glomerular Filt Rate > 60 mL/min (>60); Globulin 3.4 g/dL (1.7-4.1); Glucose 91 mg/dL (80-110); HEMOLYSIS 43 (0-50); Potassium 4.2 mmol/L (3.4-5.1); Sodium 136 mmol/L (137-145); Total Protein 7.6 g/dL (6.3-8.2)
--- NOTE | 2023-12-06 14:14 | ED.ABDPAIN ---
HPI - Abdominal Pain General Chief Complaint: Urogenital-Male Stated Complaint: kidney stone Time Seen by Provider: 12/06/23 13:38 Source: patient Mode of arrival: Ambulatory History of Present Illness HPI narrative: 78-year-old male complains of left flank area discomfort sudden onset 11:00 p.m., lasting for about 3 hours last night and seemed to go away for a while, this morning had recurrence of symptoms, intermittently, currently not having symptoms. No associated nausea or vomiting. No fevers or chills. No painful urination or frequency of urination. No obvious darkening or blood in stool. He has not recall prior history of kidney stones. No prior episodes of colitis, diverticulitis, bowel obstruction. He has had some blood in stool in the past he has attributed to hemorrhoids, none recent. No recent trauma, fall, twist, new activities. No skin rash. Related Data Home Medications Medication Instructions Recorded Confirmed hydrochlorothiazide 25 mg tablet 25 mg PO QAM 02/03/19 02/04/19 lisinopril 10 mg tablet 10 mg PO BEDTIME 02/03/19 02/04/19 simvastatin 20 mg tablet 20 mg PO BEDTIME 02/03/19 02/04/19 multivitamin 1 tab PO DAILY 02/04/19 02/04/19 vit C 250 mg-vit E 90 mg-zinc 40 1 cap PO BID 02/04/19 02/04/19 mg-copper 1 gs-yrmnsq-ldthme capsule (PreserVision AREDS-2) Previous Rx's Medication Instructions Recorded hydrocodone 5 mg-acetaminophen 325 1 tab PO Q6H PRN pain #14 tabs 12/06/23 mg tablet naproxen 500 mg tablet 500 mg PO BID 7 days #14 tabs 12/06/23 tamsulosin 0.4 mg capsule 0.4 mg PO DAILY #14 caps 12/06/23 Allergies Allergy/AdvReac Type Severity Reaction Status Date / Time No Known Drug Allergies Allergy Verified 12/06/23 12:48 Review of Systems Review of Systems Narrative: see HPI Patient History Medical History (Updated 12/06/23 @ 15:33 by Gael Rodriguez MD) High cholesterol Hypertension Atrial fibrillation Surgical History S/P ablation of atrial fibrillation Social History Smoking Status: Former smoker Smoking Status: Former smoker alcohol intake frequency: a few times a week Alcohol type: beer Substance Use Type: does not use Exam Narrative Exam Narrative: GENERAL: Well-developed patient, in mild distress. HEAD: Atraumatic. Normocephalic. EYES: Pupils equal round and reactive. Extraocular motions intact. No scleral icterus. No injection or drainage. ENT: Nose without bleeding, purulent drainage. Throat without erythema, tonsillar hypertrophy or exudate. Airway patent. NECK: Trachea midline. Non tender CARDIOVASCULAR: Regular rate and rhythm without murmurs, gallops, or rubs. RESPIRATORY: Clear to auscultation. Breath sounds equal bilaterally. No wheezes, rales, or rhonchi. GASTROINTESTINAL: Abdomen soft, non-tender, nondistended. EXTREMITIES: No edema or joint tenderness. BACK: Nontender without deformity or crepitance. No flank tenderness. NEURO: AOx3. Motor functions grossly nonfocal SKIN: No rash or erythema of visible areas Initial Vital Signs Initial Vital Signs: Vital Signs Temperature 97.4 F L 12/06/23 12:45 Pulse Rate 70 12/06/23 12:45 Respiratory Rate 18 12/06/23 12:45 Blood Pressure 176/90 H 12/06/23 12:45 Pulse Oximetry 99 12/06/23 12:45 Oxygen Delivery Method Room Air 12/06/23 12:45 Course Orders Ordered: Discontinued Medications Ketorolac Tromethamine (Ketorolac 30 Mg/Ml Vial) 15 mg IV NOW ONE Stop: 12/06/23 15:31 Last Admin: 12/06/23 15:37 Dose: 15 mg Documented By: VIKAS Ondansetron HCl (Ondansetron 4 Mg/2 Ml Inj) 4 mg IV NOW PRN PRN Reason: Nausea And Vomiting Last Admin: 12/06/23 13:29 Dose: 4 mg Documented By: AYE Tamsulosin HCl (Tamsulosin 0.4 Mg Capsule) 0.4 mg PO NOW ONE Stop: 12/06/23 15:30 Last Admin: 12/06/23 15:38 Dose: 0.4 mg Documented By: VIKAS Vital Signs Vital signs: Vital Signs - 8 hr 12/06/23 13:22 12/06/23 13:23 12/06/23 13:23 Pulse Rate 72 72 Respiratory Rate Blood Pressure 178/97 H Pulse Oximetry 96 100 Oxygen Delivery Method 12/06/23 13:30 12/06/23 13:30 12/06/23 14:00 Pulse Rate 74 76 Respiratory Rate 19 22 Blood Pressure 177/93 H Pulse Oximetry 100 100 Oxygen Delivery Method 12/06/23 14:24 12/06/23 14:24 12/06/23 14:30 Pulse Rate 76 78 Respiratory Rate 22 22 Blood Pressure 119/79 Pulse Oximetry 99 99 Oxygen Delivery Method 12/06/23 14:31 12/06/23 14:31 12/06/23 15:00 Pulse Rate 77 82 Respiratory Rate 22 Blood Pressure 177/94 H Pulse Oximetry 100 97 Oxygen Delivery Method Room Air 12/06/23 15:00 12/06/23 15:30 12/06/23 15:30 Pulse Rate 85 Respiratory Rate 20 Blood Pressure 174/85 H 157/85 H Pulse Oximetry 96 Oxygen Delivery Method 12/06/23 15:59 12/06/23 15:59 12/06/23 16:00 Pulse Rate 88 88 Respiratory Rate 19 23 Blood Pressure 124/70 Pulse Oximetry 96 96 Oxygen Delivery Method MDM - Abdominal Pain Lab Data Attestation: I reviewed the patient's lab results. 12/06/23 13:24 12/06/23 13:24 Labs: Lab Results 12/06/23 12/06/23 Range/Units 12:49 13:24 WBC 11.1 H (4.5-11.0) X10^3/uL RBC 4.75 (4.5-5.9) X10^6/uL Hgb 15.4 (13.5-17.5) g/dL Hct 45.7 (41-53) % MCV 96.1 (80-100) fL MCH 32.5 (26-34) PG MCHC 33.8 (30-36) % RDW 13.6 (11.6-14.8) % Plt Count 215 (150-400) X10^3/uL Neut % (Auto) 68.5 (50-75) % Lymph % (Auto) 17.4 L (25-40) % [place] % (Auto) 11.2 (3-14) % Eos % (Auto) 1.2 L (2-4) % Baso % (Auto) 1.7 (0-2) % Neut # (Auto) 7600 H (6573-4526) /uL Lymph # (Auto) 1900 (6504-2212) /uL [place] # (Auto) 1200 H (0-900) /uL Eos # (Auto) 100 (0-450) /uL Baso # (Auto) 200 H (0-100) /uL Sodium 136 L (137-145) mmol/L Potassium 4.2 (3.4-5.1) mmol/L Chloride 103 (98-107) mmol/L Carbon Dioxide 28 (22-32) mmol/L BUN 23 H (9-20) mg/dL Creatinine 0.93 (0.66-1.25) mg/dL Estimated GFR > 60 (>60) mL/min BUN/Creatinine Ratio 24.7 H (6-22) Glucose 91 (80-110) mg/dL Calcium 9.9 (8.4-10.2) mg/dL Total Bilirubin 1.0 (0.2-1.3) mg/dL AST 44 (17-59) IU/L ALT 25 (<50) IU/L Alkaline Phosphatase 79 (38-126) U/L Total Protein 7.6 (6.3-8.2) g/dL Albumin 4.2 (3.5-5.0) g/dL Globulin 3.4 (1.7-4.1) g/dL Albumin/Globulin Ratio 1.2 (1.0-2.8) Urine RBC 30-100/hpf H (0-5/HPF) Urine WBC 0-1/hpf (0-5/HPF) Ur Squamous Epith Cells None seen (0-5/HPF) Amorphous Sediment 1+ Urine Bacteria Few (2-10) H (None) Ur Culture Indicated? Cult not indicated Vol Urine Centrifuged 10ml (spun) Point of care testing: Urine Dip Bedside Urine Glucose Negative Bedside Urine Bilirubin - Negative Bedside Urine Ketone - Negative Urine Specific [place] 1.015 Bedside Urine Occult Blood +++ Bedside Urine pH 7.0 Bedside Urine Protein - Negative Bedside Urine Urobilinogen +/- 1mg Bedside Urine Nitrite - Negative Bedside Urine Leukocytes - Negative Esterase ECG Data Attestation: I personally reviewed and interpreted this ECG as follows: Interpretation: Normal sinus rhythm with rate of 80, no obvious ST segment elevation or depression changes. Unifocal monomorphic PVC noted. First-degree AV block. DE 244, QRS 88, QTC 426. MDM Narrative Medical decision making narrative: 78-year-old male with left flank pain atraumatic, intermittent since last night, no fevers or chills, no history of kidney stones. No tenderness percussion left flank, nor anterior abdominal exam. Afebrile, sirs screen negative. DDx consider ureteral stone, UTI, diverticulitis, colitis, other. Labs pending. Urinalysis shows some blood, not obviously infected, no culture sent. CT abdomen and pelvis study pending CT abdomen and pelvis shows 3-4 mm proximal left ureteral stone with hydronephrosis. See radiology report. Patient had some recurrence of symptoms, IV Toradol, improved. Discharge on regimen of naproxen, tamsulosin, opiate analgesic as needed. Advised to follow up with Urology, contact information given for office of Dr. Forbes. Return precautions discussed, home with family. Discharge Plan Departure Patient Disposition: Home Clinical Impression: Left flank pain, Left ureteral stone Activity Restrictions/Additional Instructions: Left-sided flank pain intermittent since last night. No history of kidney stones known. Some blood in the urine without obvious infection changes. Screening labs unremarkable otherwise. CT scan showed presence of left-sided ureteral stone, 3-4 mm diameter in proximal left ureter. Tamsulosin for possible stone expulsion. Take [id number] pain medications anti-inflammatory medications as needed for pain control. Follow up with Urology. Contact information for given for Dr. Forbes. Return earlier to this/nearest emergency department for any change worsening symptoms or any concerns prior Prescriptions: New naproxen 500 mg tablet 500 mg PO BID 7 Days Qty: 14 0RF hydrocodone-acetaminophen 5-325 mg tablet 1 tab PO Q6H PRN (Reason: pain) Qty: 14 0RF tamsulosin 0.4 mg capsule 0.4 mg PO DAILY Qty: 14 0RF No Action simvastatin 20 mg tablet 20 mg PO BEDTIME lisinopril 10 mg tablet 10 mg PO BEDTIME hydrochlorothiazide 25 mg tablet 25 mg PO QAM multivitamin Tablet 1 tab PO DAILY PreserVision AREDS-2 [id number] Capsule 1 cap PO BID Referrals: Oswald Forbes DO [Physician] - Hernán,Zhen, DO [Primary Care Provider] - Stand Alone Forms: Patient Portal/API
--- NOTE | 2023-12-06 14:38 | EKG_ITS ---
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
[2023-12-06] MEDS: KETOROLAC 30 MG/ML VIAL 15 MG IV (15:37)
[2023-12-06] MEDS: TAMSULOSIN 0.4 MG CAPSULE PO (15:38)
== END 2023-12-06 16:15 | disposition home or self-care (01) ==
PROVIDERS: Emergency Provider Emergency Medicine; PCP Internal Medicine
DX: N20.1 Calculus of ureter (principal); R10.9 Unspecified abdominal pain; I44.0 Atrioventricular block, first degree
CPT/HCPCS: 36415; 74176; 80053; 81003; 81015; 85025; 93005; 96374; 96375; 99284; J1885; J2405